=== PATIENT | female | born 1970 | race Caucasian/White ===

== ENCOUNTER 2022-07-03 15:47 | Emergency (ER) | payer OTHER, SELFPAY ==
--- NOTE | 2022-07-03 15:50 | ED.URI ---
HPI - URI/Sore Throat General Chief Complaint: Upper Respiratory Infection Stated Complaint: Throat feels like it is closing Time Seen by Provider: 07/03/22 15:50 Source: patient and RN notes reviewed History of Present Illness HPI Narrative: Patient is a 52-year-old female who presents to urgent care with complaints of swollen throat. Patient states that she did eat [employer] chicken nuggets just prior to her arrival and was able to swallow without difficulty. Patient states that she has dysfunction to strep last week and she felt like her glands were swelling last night. Patient is not taking anything [id number] for her symptoms. Denies any fever, nausea or vomiting. No other acute complaints. No acute distress noted. Patient aware of the plan of care. Some parts of this dictation were generated by voice recognition software and may contain typographical and/or grammatical inaccuracies. Related Data Home Medications Medication Instructions Recorded Confirmed albuterol sulfate 90 mcg/actuation 2 puff inhalation Q4-6H PRN 07/03/22 07/03/22 aerosol inhaler Shortness Of Breath Or Wheezing famotidine 20 mg tablet 20 mg PO QPM 07/03/22 07/03/22 fluticasone propionate 50 1 spray intranasal BID 07/03/22 07/03/22 mcg/actuation nasal spray,suspension insulin glargine 100 unit/mL (3 30 unit subcut QPM 07/03/22 07/03/22 mL) subcutaneous pen (Lantus Solostar U-100 Insulin) insulin lispro 100 unit/mL 5 unit subcut TID 07/03/22 07/03/22 subcutaneous pen ipratropium bromide 17 2 puff inhalation DAILY PRN 07/03/22 07/03/22 mcg/actuation HFA aerosol inhaler Shortness Of Breath Or Wheezing (Atrovent HFA) losartan 50 mg tablet 50 mg PO DAILY 07/03/22 07/03/22 Allergies Allergy/AdvReac Type Severity Reaction Status Date / Time Penicillins Allergy Unknown Unknown Verified 07/03/22 16:12 Sulfa (Sulfonamide Allergy Unknown Unknown Verified 07/03/22 16:12 Antibiotics) tetracycline Allergy Unknown Unknown Verified 07/03/22 16:12 ERYTHROMYCIN LACTOBIONATE Allergy Unknown Unknown Uncoded 07/03/22 16:12 Review of Systems Review of Systems: CONSTITUTIONAL: Denies fever, chills, or sweats. EYES: Denies visual changes, redness, or discharge. ENT: Denies rhinorrhea, congestion, otalgia. Reports of sore throat and swollen glands CARDIOVASCULAR: Denies chest pain, palpitations, or edema. RESPIRATORY: Denies cough or dyspnea. GASTROINTESTINAL: Denies abdominal pain, nausea, vomiting, or diarrhea. GENITOURINARY: Denies dysuria or hematuria. SKIN: Denies rash or itching. MUSCULOSKELETAL: Denies back pain, joint pain, or myalgia. NEUROLOGIC: Denies headache, numbness, or weakness. All other systems reviewed are negative, except as documented in HPI. PMFSH Comments At the time of my signature, I reviewed and agree with the nursing past medical, surgical, social, and family history. There is no relevant family history pertinent to the patient complaint. Exam Narrative: GENERAL: This is a well-nourished, well-developed patient, in no apparent distress. HEAD: normocephalic, atraumatic. EYES: PERRL. Sclera clear/white. Vision is grossly intact. EARS: External ears normal, auditory canals clear and without drainage, TMs normal without perforation. Hearing grossly intact. NOSE: External nose normal with no obvious nasal discharge, nares without redness, no rhinorrhea. THROAT: Mucous membranes moist, posterior pharynx clear. NECK: Neck supple, non-tender mild bilateral submandibular lymphadenopathy, masses or thyromegaly. CARDIOVASCULAR: Regular rate and rhythm without murmurs, gallops, or rubs. RESPIRATORY: Clear to auscultation. Breath sounds equal bilaterally. No wheezes, rales, or rhonchi. SKIN: warm, intact with no suspicious lesions or rash, good texture and turgor. NEURO: awake, alert, and oriented to person, place and time. There were no obvious focal neurologic abnormalities. EXTREMITIES: No clubbing, cyanosis
[2022-07-03 15:52] VITALS: BP 128/71; PULSE 103; RESP 20; TEMP 36.7; O2SAT 96
== END 2022-07-03 16:25 | disposition home or self-care (01) ==
PROVIDERS: Emergency Provider Nurse Practitioner Family; PCP Internal Medicine
DX: J02.9 Acute pharyngitis, unspecified (principal); I10 Essential (primary) hypertension; J45.909 Unspecified asthma, uncomplicated; K21.9 Gastro-esophageal reflux disease without esophagitis; E11.9 Type 2 diabetes mellitus without complications
CPT/HCPCS: 87081; 87880; 99203; G0463

== ENCOUNTER 2023-01-29 17:35 | Emergency (ER) | payer OTHER, SELFPAY ==
[2023-01-29 17:45] VITALS: BP 131/80; PULSE 89; RESP 18; TEMP 36.4; O2SAT 95
--- NOTE | 2023-01-29 18:00 | ED.URI ---
HPI - URI/Sore Throat General Chief Complaint: Upper Respiratory Infection Stated Complaint: chest tight/cough/throat/chills Time Seen by Provider: 01/29/23 18:01 Source: patient Mode of arrival: ambulatory Limitations: no limitations History of Present Illness HPI Narrative: 52-year-old female with history of COPD presented for complaint of cough for 4 days. Endorses at the onset she had headache, nasal congestion and fever which have improved. endorses fatigue and increased shortness of breath from baseline. Patient is tested Negative twice for COVID at home. States she took 4 tablets of leftover Augmentin since yesterday. Related Data Home Medications Medication Instructions Recorded Confirmed albuterol sulfate 90 mcg/actuation 2 puff inhalation Q4-6H PRN 07/03/22 01/29/23 aerosol inhaler Shortness Of Breath Or Wheezing insulin glargine 100 unit/mL (3 30 unit subcut QPM 07/03/22 01/29/23 mL) subcutaneous pen (Lantus Solostar U-100 Insulin) insulin lispro 100 unit/mL 5 unit subcut TID 07/03/22 01/29/23 subcutaneous pen ipratropium bromide 17 2 puff inhalation DAILY PRN 07/03/22 01/29/23 mcg/actuation HFA aerosol inhaler Shortness Of Breath Or Wheezing (Atrovent HFA) losartan 50 mg tablet 50 mg PO DAILY 07/03/22 01/29/23 medroxyprogesterone 150 mg/mL 150 mg IM [id number] 01/29/23 01/29/23 intramuscular suspension Allergies Allergy/AdvReac Type Severity Reaction Status Date / Time Penicillins Allergy Unknown Unknown Verified 01/29/23 17:47 Sulfa (Sulfonamide Allergy Unknown Unknown Verified 01/29/23 17:47 Antibiotics) tetracycline Allergy Unknown Unknown Verified 01/29/23 17:47 ERYTHROMYCIN LACTOBIONATE Allergy Unknown Unknown Uncoded 07/03/22 16:12 Review of Systems Review of Systems: CONSTITUTIONAL: Denies body aches, fever, chills, or sweats. EYES: Denies visual changes, redness, or discharge. ENT: Denies rhinorrhea, congestion, sore throat, or otalgia. CARDIOVASCULAR: Denies chest pain, palpitations, or edema. RESPIRATORY: Reports cough, sob, wheezing. GASTROINTESTINAL: Denies abdominal pain, nausea, vomiting, or diarrhea. SKIN: Denies rash, itching, or wounds. MUSCULOSKELETAL: Denies back pain, joint pain, or myalgia. NEUROLOGIC: Denies headache, numbness, tingling, or weakness. All systems reviewed & are unremarkable except as noted in HPI and below PMFSH Past Medical History Medical History Anemia COPD (chronic obstructive pulmonary disease) Diabetes Social History Social History Smoking status: Current every day smoker Comments At time of signature, I have reviewed and agree with nursing past medical, surgical, social and family history unless otherwise noted. Please see nursing chart for further information. There is no relevant family history pertinent to the presenting complaint Exam Narrative: GENERAL: mildly ill-appearing, in no acute distress. EYES: EOMI. No redness or drainage. Conjunctivae normal. ENT: Mucous membranes pink and moist. No rhinorrhea. TMs normal bilaterally. Throat normal. Uvula midline. CHEST: No respiratory distress. Faint scattered wheezing. HEART: Regular rate and rhythm. No murmur appreciated. ABDOMEN: Soft, nontender, nondistended, normal active bowel sounds. EXTREMITIES: Normal range of motion. No edema. SKIN: Warm, dry, no rash. Capillary refill normal. Normal skin turgor. NEURO: Alert and oriented x3. Gait steady. PSYCH: Normal affect. Course Course Emergency Course: Patient is aware of diagnosis, understands and agrees to treatment plan. Anticipatory guidance given. Patient agrees to follow-up as directed and is aware of reasons to seek care at the emergency department. Portions of this record may have been created with voice recognition software Level of Care: Express Care Visit Vital Signs Patti
== END 2023-01-29 18:18 | disposition home or self-care (01) ==
PROVIDERS: Emergency Provider Nurse Practitioner Family; PCP Internal Medicine
DX: J40 Bronchitis, not specified as acute or chronic (principal); J44.9 Chronic obstructive pulmonary disease, unspecified; E11.9 Type 2 diabetes mellitus without complications; F17.200 Nicotine dependence, unspecified, uncomplicated; Z79.899 Other long term (current) drug therapy; Z79.4 Long term (current) use of insulin
CPT/HCPCS: 99213; G0463

== ENCOUNTER 2024-07-09 17:38 | Emergency (ER) | payer OTHER, SELFPAY ==
--- OUTSIDE RECORDS SUMMARY | 2024-07-09 17:42 | XMS_ITS | Clinical Summary ---
Author Organization [facility] Address [address] [place] [address] Phone Care Team Providers Care Senior Developer Name Role Phone Kendrick Diaz MD Primary Care Provider [phone] Allergies Active Allergy Reactions Criticality Noted Date Comments Erythromycin Unknown 01/06/2015 Penicillins Unknown 01/06/2015 Sulfa Antibiotics Unknown 01/06/2015 Tetracycline Unknown 01/06/2015 Medications HYDROcodone-yana taminophen (NORCO) 5-325 MG Tablet Take 1-2 Tabs by mouth every 4 hours as needed for Pain. 20 Tab 0 01/06/2015 Active predniSONE (DELTASONE) 50 MG Tablet Take 1 Tab by mouth daily. Use as directed. 5 Tab 0 01/06/2015 Active ibuprofen (MOTRIN) 200 MG Tablet Take 3 Tabs by mouth every 6 hours as needed for Fever or Pain. 30 Tab 0 01/06/2015 Active traMADol (ULTRAM) 50 MG Tablet Take 1 Tab by mouth every 6 hours as needed for Pain. 20 Tab 0 03/17/2016 Active naproxen (NAPROSYN) 500 MG TabletIndicatio ns:Pain Take 1 Tablet by mouth 2 times daily as needed for Mild or more severe pain. Indications: Pain 20 Tablet 12/21/2023 Active traMADol (ULTRAM) 50 MG TabletIndicatio ns:Nondisplaced fracture of proximal phalanx of right great toe, initial encounter for closed fracture Take 1 Tablet by mouth every 8 hours as needed for Moderate or more severe pain. 15 Tablet 12/21/2023 Active Social History Tobacco Use Types Packs/Day Years Used Date Smoking Tobacco: Every Day Cigarettes Comments No Sex and Gender Information Value Date Recorded Sex Assigned at Not on file Legal Sex Female 4:04 PM [employer] Gender Identity Not on file Sexual Orientation Not on file Last Filed Vital Signs Vital Sign Reading Time Taken Comments Blood Pressure 157/75 12/21/2023 6:59 PM [employer] Pulse 88 12/21/2023 6:59 PM [employer] Temperature 36.5 C (97.7 F) 12/21/2023 6:58 PM [employer] Respiratory Rate 19 12/21/2023 6:58 PM [employer] Oxygen Saturation 99% 12/21/2023 6:59 PM [employer] Inhaled Oxygen Concentration - - Weight 78 kg (172 lb) 12/21/2023 6:58 PM [employer] Height 167.6 cm (5' 6) 12/21/2023 6:58 PM [employer] Body Mass Index 27.76 12/21/2023 6:58 PM [employer] Plan of Treatment Health Maintenance Due Date Last Done Comments Hepatitis C Virus (HCV) Screening 1970 Mammogram 1968 TdaP Immunization 1968 Hepatitis B Immunization (1 of 3 - 19+ 3-dose series) 02/28/1987 Pneumococcal Immunization (50+ years) (1 of 2 - PCV) 02/28/1987 Pap Smear 02/28/1989 Cervical Cancer Screening (CCS) 02/28/1998 HPV/Cotest 02/28/1998 Colonoscopy 02/28/2013 Colorectal Cancer Screening 02/28/2013 Cologuard 02/28/2018 Immunochemical Fecal Occult Blood 02/28/2018 Zoster Immunization (1 of 2) 02/28/2018 Influenza Immunization (#1) 2023 10/02/2021, 11/26/2021, 11/03/2017, Additional history exists SARS-COV-2 Immunization ( season) 2023 03/10/2021, 06/22/2020, 05/06/2020 Respiratory Syncytial Virus (RSV) Immunization (Adult) (1 - 1-dose 75+ series) 02/28/2043 Meningococcal Immunization (ACWY) Aged Out No longer eligible based on patient's age to complete this topic Rotavirus Immunization Aged Out No lo nger eligible based on patient's age to complete this topic Insurance [place]ICAID [place] Care Teams Senior Developer Relationship Specialty Start Date End Date Kendrick Diaz MD [address] [place] [address] PCP - General Family Medicine 12/21/23
--- OUTSIDE RECORDS SUMMARY | 2024-07-09 17:42 | XMS_ITS | Referral Summary ---
Author Organization [facility] Address [address] [place] [address] Care Team Providers Care Yarn Man Name Role Phone Juvenal Mckeon MD Unavailable [phone] Kendrick Diaz MD Primary Care Provider [phone] Encounters Date Type Department Care Team Description 06/15/2024 Telephone [facility] Diabetes Endocrine Care at [address] [place] [address] Sandra Swann NP 06/09/2024 9:30 AM CDT Office Visit [facility] Cardiology at [address] [place] [address] Oj Hernández MD Hypertension associated with type 2 diabetes mellitus (HCC) (Primary Dx); Mixed diabetic hyperlipidemia associated with type 2 diabetes mellitus (HCC); Coronary artery disease involving [place] coronary artery of [place] heart without angina pectoris; Chronic obstructive pulmonary disease, unspecified COPD type (HCC); Tobacco abuse; Family history of premature coronary artery disease 04/08/2024 Results Follow-Up [facility] Diabetes Endocrine Care at [address] [place] [address] Sandra Swann, [employer] SUPERVISOR Albumin Creatinine Ratio, Urine, Lipid panel, RetinaVue Scanner - OU - Both Eyes from Last 3 Months Allergies Active Allergy Reactions Criticality Noted Date Comments Atorvastatin Itching Low 04/07/2024 Erythromycin Unknown High 06/18/2023 As a child Morphine Nausea & Vomiting Low 12/13/2021 projectile Penicillins Unknown As a child Sulfa (Sulfonamide Antibiotics) Unknown 01/06/2015 As achild Tetracycline Unknown High 06/18/2023 As a child Liraglutide Nausea & Vomiting,Fatigue Low 12/19/2020 Medications famotidine (PEPCID) 40 mg tablet Take 0.5 tablets (20 mg total) by mouth 2 (two) times a day 1 Active albuterol HFA (PROVENTIL HFA,VENTOLIN HFA,PROAIR HFA) 90 mcg/actuation inhaler Inhale 2 puffs as needed 1 Active fluticasone propionate (FLONASE) 50 mcg/actuation nasal spray Administer 1 spray into each nostril as needed 0 Active OneTouch Delica Plus Lancet 33 gauge misc USE TO TEST BLOOD SUGAR TWICE DAILY BEFORE MEALS 1 Active Atrovent HFA 17 mcg/actuation inhaler Inhale 1 puff as needed 1 Active medroxyPROGEST ERone 150 mg/mL injection ADMINISTER 1 ML IN THE MUSCLE EVERY 3 MONTHS 3 Active empagliflozin (JARDIANCE) 10 mg tabletIndicati ons:type 2 diabetes mellitus Take 1 tablet (10 mg total) by mouth daily 90 tablet 4 4 Active LANTUS 100 unit/mL (3 mL) pen for injectionIndic ations:Type 2 diabetes mellitus with diabetic polyneuropathy , with long-term current use of insulin ([facility]) Inject 32 Units under the skin daily e11.9 30 mL 4 4 Active TRUEplus Pen Needle 31 gauge x 5/16 needle USE TO INJECT FOUR TIMES DAILY 400 each 3 4 Active OneTouch Verio test strips stripIndicatio ns:Type 2 diabetes mellitus with diabetic polyneuropathy , with long-term current use of insulin (HCC) USE 1 STRIP TO TEST BLOOD SUGAR THREE TIMES DAILY DIRECTED 300 strip 4 4 Active alcohol swabs (Alcohol Prep Pads) pads, medicatedIndic ations:Type 2 diabetes mellitus with diabetic polyneuropathy , with long-term current use of insulin (HCC) APPLY TOPICALLY TO CLEAN SKIN BEFORE BLOOD SUGAR AND INSULIN INJECTION FIVE TIMES DAILY 500 each 3 4 Active OneTouch Verio Flex meter misc USE TO TEST BLOOD SUGAR 3 TIMES DAILY BEFORE MEALS 1 each 5 Active losartan (COZAAR) 50 mg tabletIndicati ons:Type 2 diabetes mellitus with hyperglycemia, with long-term current use of insulin (HCC) Take 0.5 tablets (25 mg total) by mouth daily 5 Active rosuvastatin (CRESTOR) 20 mg tabletIndicati ons:Type 2 diabetes mellitus with hyperglycemia, with long-term current use of insulin (HCC) rosuvastatin 20 mg tablet 4 Active aspirin 81 mg chewable tabletIndicati ons:prevention of thrombosis Take 1 tablet (81 mg total) by mouth daily 90 tablet 3 5 026 Active clopidogreL (PLAVIX) 75 mg tablet Take 1 tablet (75 mg total) by mouth daily 90 tablet 3 5 Active insulin lispro (HumaLOG, ADMELOG) 100 unit/mL pen for injectionIndic ations:type 2 diabetes mellitus Inject 12 Units under the skin 3 (three) times a day before meals E11.65 45 mL 4 5 Active insulin lispro (HumaLOG, ADMELOG) 100 unit/mL pen for injection ADMINISTER 12 UNITS UNDER THE SKIN TWICE DAILY 30 mL 2 5 025 Discontin ued(Reord er) Active Problems Problem Noted Date Diagnosed Date Coronary artery disease invo lving [place] coronary artery of [place] heart without angina pectoris 06/09/2024 Family history of premature coronary artery dise ase 06/09/2024 STEMI (ST elevation myocardial infarction) 06/15 COPD (chronic obstructive pulmonary disease) 08/2023 GERD (gastroesophageal reflux disease) 4 Hypertension associated with type 2 diabetes emely litus 06/16/2023 Assessment & Plan (07/02/2023 2:42 PM CDT): This is a chronic condition which is not at goal. Goal is less than 140/90 Personally reviewed labs. Previously on losartan but was discontinued Encouraged to monitor weight and B/P at home. Explained correct way to take blood pressure. - After 5 minutes of sitting calmly with arm supported. Encouraged to void caffeine and excessive alcohol consumption as this will elevate B/P Encouraged to take medications as prescribed. Will message Dr. PARRISH and notify him of hypertension Tobacco abuse 06/16/2023 Anemia, unspecified 11/28/2021 Type 2 diabetes mellitus wit h hyperglycemia, with long-term current use of insulin 11/22/2020 Assessment & Plan (07/02/2023 2:40 PM CDT): This is a chronic condition which is Not at goal . Goal is less than 7%. Personally reviewed most recent A1c - Lab Results Component Value Date HGBA1C 7.4 (H) 06/16/2023 Personally reviewed POC blood sugar- not at goal of 80-180 Lab Results Component Value Date POCGLU 235 08/07/2022 Medication- continue Lantus 32 units daily to avoid hypoglycemia and lispro 12 units prior to 2 meals/day. Start jardiance 10mg po daily Monitor blood sugar 3 times a day. Encouraged annual eye exam. Monofilament foot exam completed. Protective senses intact Treated with Gabapentin/Lyrica Personally reviewed CMP eGFR- 76 Kidney function-abnormal Urine microalbumin/creatinine ratio - not at goal. Goal is <30 not treated with ZOE/ARB B/P today- not at goal . Goal is <140/90. Message sent to Dr. PARRISH packager or packer and weigher regarding hypertension Personally reviewed lipid panel. Not at goal. Goal is less than 70. Continue atorvastatin Assessment & Plan (08/07/2022 4:57 PM CDT): This is a chronic condition which is inadequately controlled, worsening -not at goal of less than 7%. Alteration in A1c is most likely due to iron infusions as she had low hemoglobin levels and now have returned to normal ranges Latest Reference Range & Units 05/13/22 13:55 07/01/22 14:35 Hgb 11.9 - 15.5 g/dL 8.1 (L) 12.9 Hct 35.6 - 45.5 % 25.2 (L) 39.7 (L): Data is abnormally low Personally reviewed most recent A1c - Lab Results Component Value Date HGBA1C 9.0 08/07/2022 Personally reviewed POC blood sugar- not at goal 80-180 Lab Results Component Value Date POCGLU 235 08/07/2022 Medication- increased Lantus 32 units daily to avoid hypoglycemia and lispro 12 units prior to 2 meals/day. Add bydureon bcise 2mg weekly. Monitor blood sugar 3x times a day. Encouraged annual eye exam. Monofilament foot exam completed. protective senses intact loss of protective senses. Treated with Gabapentin/Lyrica Personally reviewed CMP eGFR- 76 Kidney function- normal Urine microalbumin/creatinine ratio - not at goal <30 treated with losartan B/P today- at goal of <140/90. continue losartan Personally reviewed lipid panel. Not at Goal of less than 70. Not on statin therapy. Assessment & Plan (05/07/2022 4:51 PM CDT): This is a chronic condition which is worsening not at goal of less than 7%. Discussed that sometimes anemia can cause in accuracies in the A1c level. This is damon important to monitor blood sugars closely while she prepares for her upcoming hysterectomy. Personally reviewed most recent A1c - Lab Results Component Value Date HGBA1C 7.5 05/07/2022 Personally reviewed POC blood sugar- not at goal 80-180 Lab Results Component Value Date POCGLU 286 05/07/2022 Medication- increase Lantus 30 units daily. Took discussed the importance of maintaining blood sugars around 150 if she will be having a hysterectomy to promote good wound healing. Monitor blood sugar 2times a day. Encouraged annual eye exam. Monofilament foot exam completed, protective senses intact. Reports burning and tingling in feet Urine microalbumin/creatinine ratio - 30-300mg/dl currently losartan 50 mg p.o. daily , not at goal <30 B/P today-at goal of less than 140/90. Continue losartan. Personally reviewed LDL-113, Not at Goal of less than 70. She stopped taking the pravastatin. Explained the need for pravastatin to help with reduction of cardiovascular risk. She states she would start taking it after all of her bleeding problems and hysterectomy have been resolved Assessment & Plan (01/07/2022 4:07 PM [employer]): This is a chronic condition which is improving and at goal. Personally reviewed A1c today-6%, at goal less than 7% Personally reviewed blood sugar 244, not at goal 80-180 Medication- decrease Lantus 25 units daily. Monitor blood sugar 2times a day. Encouraged annual eye exam. Monofilament foot exam completed, protective senses intact. Reports burning and tingling in feet Urine microalbumin/creatinine ratio - 30-300mg/dl currently losartan 50 mg p.o. daily , not at goal <30 B/P today-not at goal of less than 140/90 after 5 minutes of rest. States she forgot her blood pressure medication this morning currently on losartan. Discussed setting an alarm to help remind her to take her medication. Personally reviewed LDL 99, currently on pravastatin 10 mg p.o. daily. Not at Goal of less than 70 No history of macrovascular disease - CVA, CT. Assessment & Plan (06/18/2021 4:13 PM CDT): This is a chronic condition which is improving but not at goal. Personally reviewed A1c today-7.6%, not at goal less than 7% Personally reviewed blood sugar 330, not at goal 80-180 Medication- increase Lantus 22 units daily and increase by 1 units every 4 days until fasting blood sugar is between 100-130 Monitor blood sugar 2times a day. Encouraged annual eye exam. Monofilament foot exam completed, protective senses intact. Reports burning and tingling in feet Urine microalbumin/creatinine ratio - 30-300mg/dl currently losartan 50 mg p.o. daily , not at goal <30 Ordered labs B/P today-160/80 decreased to 146/60 after 5 minutes of rest. currently on losartan. At Goal blood pressure is <140/90 and as close to 120/80 as possible. Personally reviewed LDL 99, currently on pravastatin 10 mg p.o. daily. Not at Goal of less than 70 No history of macrovascular disease - CVA, CT. Assessment & Plan (12/11/2020 3:58 PM CDT): This is a chronic condition which is uncontrolled with hyperglycemia, not at goal. Personally reviewed A1c today-10, not at goal less than 7% Personally reviewed blood sugar 308, not at goal 80-180 Medication- Lantus 20 units daily. Add victoza 0.6mg daily for 10 days and then increase to 1.2mg daily. Denies history of pancreatitis. Does not like to take pills. Monitor blood sugar 3 times a day. Encouraged annual eye exam. Monofilament foot exam completed, protective senses intact. Reports burning and tingling in feet Urine microalbumin/creatinine ratio - 30-300mg/dl currently losartan 50 mg p.o. daily , not at goal <30 No labs were available for review Ordered labs B/P today-146/60 , currently on losartan. At Goal blood pressure is <140/90 and as close to 120/80 as possible. Personally reviewed LDL 99, currently on pravastatin 10 mg p.o. daily. Not at Goal of less than 70 No history of macrovascular disease - CVA, CT. Assessment & Plan (11/22/2020 4:27 PM CDT): This is a chronic condition which is uncontrolled with hyperglycemia, not at goal. Personally reviewed A1c today-10, not at goal less than 7% Personally reviewed blood sugar 273, not at goal 80-180 Medication- Increase Lantus 14 units daily and increase by 2 units every 4 days. Stop when fasting blood sugar is 130 or at 20 units. Monitor blood sugar 3 times a day. Encouraged annual eye exam. Monofilament foot exam completed, protective senses intact. Reports burning and tingling in feet Urine microalbumin/creatinine ratio - 30-300mg/dl currently losartan 50 mg p.o. daily , not at goal <30 No labs were available for review Ordered labs B/P today-132/66 , currently on losartan. At Goal blood pressure is <140/90 and as close to 120/80 as possible. Personally reviewed LDL 99, currently on pravastatin 10 mg p.o. daily. Not at Goal of less than 70 No history of macrovascular disease - CVA, CT. Mixed diabetic hyperlipidemi a associated with type 2 diabetes mellitus 11/22/2020 Assessment & Plan (07/02/2023 2:41 PM CDT): This is a chronic condition which is not at goal . Goal is LDL less than 70 Continue atorvastatin Encouraged to eat healthy, include fresh fruits and vegetables daily and avoid eating fried foods more than once per week. Encouraged to take medications as prescribed. Assessment & Plan (08/07/2022 4:58 PM CDT): This is a chronic condition which is not at goal of LDL less than 70 not on statin therapy. Was on pravastatin but not taking it at this time Encouraged to eat healthy, include fresh fruits and vegetables daily and avoid eating fried foods more than once per week. Encouraged to take medications as prescribed. Assessment & Plan (05/07/2022 3:51 PM CDT): This is a chronic condition which is not at goal of less than 70. Personally reviewed point of care lipid panel. Continue pravastatin 10 mg p.o. daily. Avoid caffeine, caffeine will raise blood pressure and excessive alcohol consumption. Monitor your weight and B/P. Encouraged to take medications as prescribed. Assessment & Plan (01/07/2022 4:07 PM [employer]): This is a chronic condition which is not at goal Of <140/90 Personally reviewed point of care lipid panel. LDL 99, currently on pravastatin 10 mg p.o. daily. Not at Goal of less than 70 Avoid caffeine, caffeine will raise blood pressure and excessive alcohol consumption. Monitor your weight and B/P. Encouraged to take medications as prescribed. Assessment & Plan (06/18/2021 3:51 PM CDT): This is a chronic condition which is not at goal Goal is <140/90 Personally reviewed point of care lipid panel. LDL 99, currently on pravastatin 10 mg p.o. daily. Not at Goal of less than 70 Avoid caffeine, caffeine will raise blood pressure and excessive alcohol consumption. Monitor your weight and B/P. Encouraged to take medications as prescribed. Assessment & Plan (12/11/2020 3:24 PM CDT): This is a chronic condition which is not at goal Goal is <140/90 Personally reviewed point of care lipid panel. LDL 99, currently on pravastatin 10 mg p.o. daily. Not at Goal of less than 70 Avoid caffeine, caffeine will raise blood pressure and excessive alcohol consumption. Monitor your weight and B/P. Encouraged to take medications as prescribed. Assessment & Plan (11/22/2020 4:29 PM CDT): This is a chronic condition which is not at goal Goal is <140/90 Personally reviewed point of care lipid panel. LDL 99, currently on pravastatin 10 mg p.o. daily. Not at Goal of less than 70 Avoid caffeine, caffeine will raise blood pressure and excessive alcohol consumption. Monitor your weight and B/P. Encouraged to take medications as prescribed. Resolved Problems Problem Noted Date Diagnosed Date Resolved Date Sprain of ribs, initial encounter 03/16/2017 11/22/2020 Intercostal muscle strain 03/16/2017 Immunizations Immunization Administration Dates Next Due Influenza, Quadrivalent, Split, Intramuscular ,12/22/2014 Influenza, Quadrivalent, Spl it, Preservative Free, Intramuscular 11/03/2017 Influenza, Unspecified 11/29/2021 Social History Tobacco Use Types Packs/Day Years Used Date Smoking Tobacco: Every Day Cigarettes 2 40 Smokeless Tobacco: Never Tobacco Cessation:Ready to Q uit: Not Asked; Counseling Given: Not Answered Comments:Started smoking at age 7, was up to 3ppd by high school [facility] Utilities Answer Date Recorded In the past 12 months has [employer], gas, oil, or water [employer] threatened to shut off services in your home? No 06/16/2023 Social Connection and Isolat ion Panel [NHANES] Answer Date Recorded In a typical week, how many times do you talk on the phone with family, friends, or neighbors? More than three times a week 06/16/2023 How often do you get togethe r with friends or relatives? More than three times a week 06/16/2023 How often do you attend chur ch or scientologist services? Never 06/16/2023 Do you belong to any clubs o r organizations such as confucianist groups, unions, fraternal or athletic groups, or school groups? No 06/16/2023 How often do you attend meet ings of the clubs or organizations you belong to? Never 06/16/2023 Are you , , di vorced, , never , or living with a partner? 06/16/2023 Overall Financial Resource Strain (CARDIA) Answe r Date Recorded How hard is it for you to pa y for the very basics like food, housing, medical care, and heating? Not hard at all 06/16/2023 Hunger Vital Sign Answer Date Recorded Within the past 12 months, y ou worried that your food would run out before you got the money to buy more. Never true 06/16/19 24 Within the past 12 months, t he food you bought just didn't last and you didn't have money to get more. Never true 06/16/2023 PRAPARE - Transportation Answer Date Re corded In the past 12 months, has l ack of transportation kept you from medical appointments or from getting medications? No 08/2023 In the past 12 months, has l ack of transportation kept you from meetings, work, or from getting things needed for daily living? No 06/16/2023 Housing Stability Vital Sign Answer Raphael e Recorded In the last 12 months, was t here a time when you were not able to pay the mortgage or rent on time? No 06/16/2023 In the last 12 months, how many places have you lived? 1 06/16/2023 In the last 12 months, was t here a time when you did not have a steady place to sleep or slept in a care home (including now)? No 06/16/2023 Personal Safety Answer Date Recorded Have you ever been in or are you currently in a harmful physical or emotional relationship or is someone making you feel afraid or unsafe? Denies 06/19/2023 Comments No Sex and Gender Information Value Date Recorded Sex Assigned at Not on file Legal Sex Female 3:18 AM [employer] Gender Identity Female 12/18/2021 8:58 PM [employer] Sexual Orientation Straight 12/18/2021 8: 58 PM [employer] Last Filed Vital Signs Vital Sign Reading Time Taken Comments Blood Pressure 156/92 06/09/2024 9:40 AM CDT Pulse 88 06/09/2024 9:40 AM CDT Temperature 36.3 C (97.3 F) 12/30/2023 1:48 PM [employer] Respiratory Rate 20 12/30/2023 1:48 PM [employer] Oxygen Saturation 98% 06/09/2024 9:40 AM CDT Inhaled Oxygen Concentration - - Weight 82.6 kg (182 lb) 06/09/2024 9:40 AM CDT Height 167.6 cm (5' 6) 06/09/2024 9:40 AM CDT Body Mass Index 29.38 06/09/2024 9:40 AM CDT Plan of Treatment Not on file Medical Devices Implanted Type Area Gun Barrel Finisher Device Identifier Shelf Expiration Date Model / Serial / Lot [employer] - Night[employer]ove Synergy Xd Monorail 3mm 16mm 144cm Delivery System 1 Access Port [id number] - [id number] Implanted:Qty: 1 on 06/16/2023 by Candelario Angelo MD at [facility] [employer] 12/30/2024 [id number] / / [id number] Cord Mynxgrip 6-7fr Balloon Catheter Integrate Sealant Lock Latex Free [id number] - [id number] Implanted:Qty: 1 on 06/16/2023 by Candelario Angelo MD at [facility] 05/09/2025 [id number] / / [id number] [employer] [facility] Vas Surgery 3.0 X 15mm Dunlevy Estelline Rx Coronary Stent [id number] - [id number] Implanted:Qty: 1 on 06/19/2023 by Candelario Angelo MD at [facility] [employer] [facility] Vas Surgery 02/24/2026 [id number] / / [id number] Procedures Procedure Name Priority Date/Time Associated Diagnosis Comments ECG 12-LEAD Routine 06/09/2024 3:24 PM CDT Hypertension associated with type 2 diabetes mellitus (HCC) LIPID PANEL Routine 04/07/2024 2:43 PM [employer] Type 2 diabetes mellitus with hyperglycemia, with long-term current use of insulin (HCC) ALBUMIN CREATININE RATIO, URINE Routine 04/07/2024 2:43 PM [employer] Type 2 diabetes mellitus with hyperglycemia, with long-term current use of insulin (HCC) POCT HEMOGLOBIN A1C Routine 04/07/2024 1 :51 PM [employer] Type 2 diabetes mellitus with hyperglycemia, with long-term current use of insulin (HCC) RETINAVUE SCANNER - OU - BOTH EYES Routine 04/07/2024 Type 2 diabetes mellitus with hyperglycemia, with long-term current use of insulin (HCC) EGFR Routine 12/30/2023 1:40 PM [employer] Iron deficiency anemia due to chronic blood loss from Last 3 Months or Most Recently Relevant to Health Maintenance Results * ECG 12 lead (06/09/2024 3:24 PM CDT) us Oj Hernández MD ECG ORDERABLES Final Res ult * (ABNORMAL) Albumin Creatinine Ratio, Urine (04/07/2024 2:43 PM [employer]) Albumin Ur 96.9 mg/L Comment: Interpretive Data No reference range established. Current interpretive data was last revised 2018. Creatinine Ur 78.1 mg/dL [facility] Comment: Interpretive Data No reference range established. Current interpretive data was last revised 2018. Albumin Creatinine Ratio, Ur 124(H) 1 - 29 mg/g [facility] Urine 04/07/2024 2:43 PM [employer] 04/07/2024 9:18 PM [employer] us Sandra Swann NP LAB URINE ORDERABLES Final Resu lt [facility] [id number] Do Department [place] [address] * (ABNORMAL) Lipid panel (04/07/2024 2:43 PM [employer]) Cholesterol 131 30 - 199 mg/dL Comment: Interpretive Data Ages < or = 19 years Acceptable: <170 mg/dL Borderline high: 170-199 mg/dL High: >or= 200 mg/dL Ages > or = 20 years Desirable: <200 mg/dL Borderline high: 200-239 mg/dL High: >or= 240 mg/dL Literature References: 1. Expert Panel on Integrated Guidelines for Cardiovascular Health and Risk Reduction in Children and Adolescents. Pediatrics 2011;128:S213 2. NCEP Expert Panel. Circulation 2004;110:227 Current Interpretive Data was last revised on 2017. Triglycerides 131 <=149 mg/dL [facility] Comment: Interpretive Data Ages < or = 9 years Acceptable: <75 mg/dL Borderline high: 75-99 mg/dL High: >or= 100 mg/dL Ages 10 to 20 years Acceptable: <90 mg/dL Borderline high: 90-129 mg/dL High: >or= 130 mg/dL Ages > or = 20 years Desirable: <150 mg/dL Borderline high: 150-199 mg/dL High: 200-499 mg/dL Very high: >or= 499 mg/dL Literature References: 1. Expert Panel on Integrated Guidelines for Cardiovascular Health and Risk Reduction in Children and Adolescents. Pediatrics 2011;128:S213 2. NCEP Expert Panel. Circulation 2004;110:227 Current Interpretive Data was last revised on 2017. HDL 36(L) >=40 mg/dL [facility] Comment: Interpretive Data Ages < or = 19 years Acceptable: >45 mg/dL Borderline low: 40-45 mg/dL Low: <40 mg/dL Ages > or = 20 years Desirable: >or= 60 mg/dL Low: <40 mg/dL Literature References: 1. Expert Panel on Integrated Guidelines for Cardiovascular Health and Risk Reduction in Children and Adolescents. Pediatrics 2011;128:S213 2. NCEP Expert Panel. Circulation 2004;110:227 Current Interpretive Data was last revised on 2017. LDL, calculated 72 <=129 mg/dL [facility] Comment: Interpretive Data Ages < or = 19 years Acceptable: <110 mg/dL Borderline high: 110-129 mg/dL High: >or= 130 mg/dL Ages > or = 20 years Optimal: <100 mg/dL Near optimal: 100-129 mg/dL Borderline high: 130-159 mg/dL High: >160 mg/dL Calculated using the Frank LDL-C estimating equation. This equation was implemented on 2023. Prior to this date LDL-C was estimated using the Friedewald equation. Literature References: 1. Expert Panel on Integrated Guidelines for Cardiovascular Health and Risk Reduction in Children and Adolescents. Pediatrics 2011;128:S213 2. NCEP Expert Panel. Circulation 2004;110:227 3. Frank Bob et al. YURY Cardiol. 2020 June 09;5(5):540-548. doi: [email or web address] Current Interpretive Data was last revised on 2023. Non-HDL Cholesterol 95 mg/dL STEPHANIE ARTHUR Comment: Interpretive Data Ages < or = 19 years Acceptable: <120 mg/dL Borderline high: 120-144 mg/dL High: >145 mg/dL Ages > or = 20 years When triglycerides are >200 mg/dL, Non-HDL cholesterol is a secondary target of therapy with treatment goals that are 30 mg/dL greater than the LDL cholesterol target. Literature References: 1. Expert Panel on Integrated Guidelines for Cardiovascular Health and Risk Reduction in Children and Adolescents. Pediatrics 2011;128:S213 2. NCEP Expert Panel. Circulation 2004;110:227 Current Interpretive Data was last revised on 2017. Chol/HDL ratio 4 STEPHANIE ARTHUR Blood 04/07/2024 2:43 PM [employer] 04/07/2024 9:18 PM [employer] Narrative STEPHANIE - 04/07/2024 10:21 PM [employer] These lab test should be done fasting. This means do not eat or drink for at least 12 hours prior to getting your blood drawn. us Sandra Swann NP LAB BLOOD ORDERABLES Final Resu lt STEPHANIE [id number] [address] Department [place] [address] * POCT hemoglobin A1c (04/07/2024 1:51 PM [employer]) Hemoglobin A1C, POC 7.5 4.0 - 5.6 % Blood 04/07/2024 1:51 PM [employer] us Sandra Swann NP POINT OF CARE TEST ORDERABLES F inal Result * RetinaVue Scanner - OU - Both Eyes (04/07/2024) Anatomical Region Laterality Modality Head Fundus Photograp hy 04/07/2024 us Sandra K. Shree STENO POOL SUPERVISOR OPHTH PHOTOGRAPHY Final Result * eGFR (12/30/2023 1:40 PM [employer]) eGFR 62 >=60 mL/min/1. 73 m2 Comment: Interpretive Data Reference Interval Normal >/= 90 mL/min/1.73m2 Mildly decreased* 60 - 89 mL/min/1.73m2 Mildly to moderately decreased 45 - 59 mL/min/1.73m2 Moderately to severely decreased 30 - 44 mL/min/1.73m2 Severely decreased 15 - 29 mL/min/1.73m2 Kidney Failure < 15 mL/min/1.73m2 *Relative to young adult level Estimated glomerular filtration rate is determined by the 2020 CKD-EPI equation recommended by the National Kidney Foundation (A Unifying Approach to GFR Estimation: Recommendations of the NKF-ASK Task Force on Reassessing the Inclusion of Race in Diagnosing Kidney Disease, JASN 2020). The CKD-EPI equation should not be used for patients with unstable renal function and has not been validated in children and those over 70. Current interpretive data was last reviewed 2020. Testing performed by: [facility], [place], [address] Blood 12/30/2023 1:40 PM [employer] 12/30/2023 2:38 PM [employer] us Sepideh Dobbs NP LAB BLOOD ORDERABLES Final Result [facility] ([address] Department [place] [address] from Last 3 Months or Most Recently Relevant to Health Maintenance Insurance [facility] Advance Directives For more information, please contact: [phone] * Full Code (Latest Code Status on File) Date Activated Date Inactivated Comments 06/16/2023 5:19 AM 06/17/2023 9:36 PM Care Teams Yarn Man Relationship Specialty Start Date End Date Kendrick Diaz MD [address] [place] [address] [address] [place] [address] PCP - General Family Medicine 06/16/23 Juvenal Mckeon MD Medical Oncologist/Specialized Developer Hematology and Oncology 07/01/22
--- OUTSIDE RECORDS SUMMARY | 2024-07-09 17:42 | XMS_ITS | Data Portability ---
Author Organization [facility] Jose Angel [facility] Address [address] [place] [address] Care Team Providers Care Health Promoter Name Role Phone ZEN HORNER Diabetes Education [phone] TRACEE MYERS Gang Head Saw Operator JOSE SWAN Blogs Manager KENDRICK HAWLEY Primary Care Provider Assessment Encounter Date Assessment Date Assessment LastModified by Organization Details LastModified Time 06/15/2024 06/15/2024 Treatment will proceed as below. [email or web address] Not available 06/17/2024 07:23:36 Plan of Treatment Reminders Order Date Submit Date Provider Last Modified By Organization Details Last Modified Time Details Appointments NICHOL SILVA T 30 2024 11:00A M Oscar Garcia MD Not available Not available Not available Lab ferrit in, serum or plasma 2024 025 MELVIN [facility] (Centralized Electronic Ordering - All Locations), Patient Can Go To The Location Of Their Choice, 05/25/2024 11:27:19 iron + total iron-b inding capaci ty (TIBC) , serum 2024 025 MELVIN [facility] (Centralized Electronic Ordering - All Locations), Patient Can Go To The Location Of Their Choice, 05/25/2024 11:27:15 HbA1c (hemog lobin A1c), blood 2024 025 MELVIN [facility] (Centralized Electronic Ordering - All Locations), Patient Can Go To The Location Of Their Choice, 05/25/2024 11:27:16 cobala min and folate panel, serum 2024 025 MELVIN [facility] (Centralized Electronic Ordering - All Locations), Patient Can Go To The Location Of Their Choice, 05/25/2024 11:27:14 CBC w/ auto diff 2024 MELVIN [facility] (Centralized Electronic Ordering - All Locations), Patient Can Go To The Location Of Their Choice, 05/25/2024 11:27:20 lh + FSH, serum 2024 025 MELVIN [facility] (Centralized Electronic Ordering - All Locations), Patient Can Go To The Location Of Their Choice, 05/25/2024 11:27:21 estrad iol, serum 2024 025 MELVIN [facility] (Centralized Electronic Ordering - All Locations), Patient Can Go To The Location Of Their Choice, 05/25/2024 11:27:17 Referral gyneco logic surger y referr al 2024 [email or web address] Bradley MD, [address] [place], [address], 05/24/2024 17:32:34 Procedures None record ed. Surgeries None record ed. Imaging US, pelvis , transa bdomin al + transv aginal 2024 [facility], [address] [facility] , [place], [address], 07/09/2024 04:07:47 Medication Orders Bactri m DS 800 mg-160 mg tablet 2024 025 [facility][id number], [address], [place], [place], [id number], 06/15/2024 10:53:14 medrox yproge steron e 150 mg/mL intram uscula r suspen delilah 2024 [facility]25 [facility], [address], [place], [place], [id number], 05/24/2024 09:40:02 medrox yproge steron e 150 mg/mL intram uscula r suspen delilah 2024 025 [email or web address] [facility] #13626, [address], [place], [place], [id number], 02/23/2024 09:19:03 medrox yproge steron e 150 mg/mL intram uscula r suspen delilah 2023 024 [email or web address] Not available 12/08/2023 09:20:07 Patient TargetsNo targets recorded. Patient Instructions Encounter Date Encounter Id Patient Instructions Last Modified By Organization Details Last Modified Time 12/04/2023 [id number] Quitting Tobacco: Care Instructions [email or web address] Not available 12/08/2023 10:36:21 05/24/2024 [id number] heavy menstrual periods: care instructions [email or web address] Not available 05/24/2024 16:29:54 06/15/2024 [id number] chronic obstructive pulmonary disease (COPD): care instructions [email or web address] Not available 06/15/2024 10:56:25 learning about copd and how to prevent lung infections [email or web address] Not available 06/15/2024 10:56:25 Reason for Referral Gynecologic Surgery Referral for Menorrhagia Referring Physician: Tracee Myers, Office Services Associate, Encounter Date: 05/24/2024 Results Created Date Observation Date Name Description Value Unit Range Abnormal Flag Note LastModifiedBy Organization Detail LastModifiedTime 04/07/1904/07/2024 Hemog lobin A1c/H emogl obin. total in Blood hemoglobin A1C, POC 7.5 % low: 4%high : 5.6% Hemog lobin A1C, POC 7.5 4.0 - 5.6 % Not Available Not Available 04/12/2024 14:30:32 05/25/19 25 05/25/2024 VITAM IN B12 AND FOLAT E vitamin B12 470 pg/mL 232-12 45 Not Available [facility] ([facility]) [address] [facility], [place], [address], 05/25/2024 11:27:14 05/25/19 25 05/25/2024 VITAM IN B12 AND FOLAT E folate (folic acid), serum 10.0 NG/mL >3.0 A serum folat e ana ntrat ion of less than 3.1 ng/mL is consi dered to repre sent clini loyd defic iency . Not Available [facility] ([facility]) [address] [facility], [place], [address], 05/25/2024 11:27:14 05/25/19 25 05/25/2024 IRON AND TIBC iron bind.cap.(TI BC) 385 ug/dL 250-45 0 Not Available [facility] ([facility]) [address] [facility], [place], [address], 05/25/2024 11:27:15 05/25/19 25 05/25/2024 IRON AND TIBC UIBC 294 ug/dL 131-42 5 Not Available [facility] ([facility]) [address] [facility], [place], [address], 05/25/2024 11:27:15 05/25/19 25 05/25/2024 IRON AND TIBC iron 91 ug/dL 27-159 Not Available [facility] ([facility]) [address] [place], [address], 05/25/2024 11:27:15 05/25/19 25 05/25/2024 IRON AND TIBC iron saturation 24 % 15-55 Not Available [facility] ([facility]) [address] [facility], [place], [address], 05/25/2024 11:27:15 05/25/19 25 05/25/2024 HEMOG LOBIN A1C hemoglobin A1C 8.0 % 4.8-5. 6 above high normal Predi abete s: 5.7 - 6.4 Diabe coy: >6.4 Glyce deja contr ol for adult s with diabe coy: <7.0 Not Available [facility] ([facility]) [address] [place], [address], 05/25/2024 11:27:16 05/25/19 25 05/25/2024 ESTRA DIOL estradiol 10.7 pg/mL Adult Femal e Range Folli cular phase 12.5 - 166.0 Ovula tion phase 85.8 - 498.0 Lutea l phase 43.8 - 211.0 Postm enopa usal <6.0 - 54.7 Pregn wilfrid 1st trime ster 215.0 - >4300 .0 Leonard ECLIA metho dolog y Not Available [facility] ([facility]) [address] [place], [address], 05/25/2024 11:27:17 05/25/19 25 05/25/2024 ENOCH TIN ferritin 34 NG/mL 15-150 Not Available [facility] ([facility]) [address] [place], [address], 05/25/2024 11:27:18 05/25/19 25 05/25/2024 CBC WITH DIFFE RENTI AL/PL ATELE T WBC 8.9 x10e3 /uL 3.4-10 .8 Not Available [facility] ([facility]) [address] [place], [address], 05/25/2024 11:27:20 05/25/19 25 05/25/2024 CBC WITH DIFFE RENTI AL/PL ATELE T RBC 4.41 x10e6 /uL 3.77-5 .28 Not Available [facility] ([facility]) [address] [place], [address], 05/25/2024 11:27:20 05/25/19 25 05/25/2024 CBC WITH DIFFE RENTI AL/PL ATELE T hemoglobin 13.4 g/dL 11.1-1 5.9 Not Available [facility] ([facility]) [address] [place], [address], 05/25/2024 11:27:20 05/25/19 25 05/25/2024 CBC WITH DIFFE RENTI AL/PL ATELE T hematocrit 39.7 % 34.0-4 6.6 Not Available [facility] ([facility]) [address] [facility], [place], [address], 05/25/2024 11:27:20 05/25/19 25 05/25/2024 CBC WITH DIFFE RENTI AL/PL ATELE T MCV 90 fL 79-97 Not Available [facility] ([facility]) [address] [place], [address], 05/25/2024 11:27:20 05/25/19 25 05/25/2024 CBC WITH DIFFE RENTI AL/PL ATELE T MCH 30.4 pg 26.6-3 3.0 Not Available [facility] ([facility]) [address] [facility], [place], [address], 05/25/2024 11:27:20 05/25/19 25 05/25/2024 CBC WITH DIFFE RENTI AL/PL ATELE T MCHC 33.8 g/dL 31.5-3 5.7 Not Available [facility] ([facility]) [address] [place], [address], 05/25/2024 11:27:20 05/25/19 25 05/25/2024 CBC WITH DIFFE RENTI AL/PL ATELE T RDW 13.4 % 11.7-1 5.4 Not Available [facility] ([facility]) [address] [place], [address], 05/25/2024 11:27:20 05/25/19 25 05/25/2024 CBC WITH DIFFE RENTI AL/PL ATELE T platelets 270 x10e3 /uL 150-45 0 Not Available [facility] ([facility]) [address] [place], [address], 05/25/2024 11:27:20 05/25/19 25 05/25/2024 CBC WITH DIFFE RENTI AL/PL ATELE T neutrophils 59 % notest ab. Not Available [facility] ([facility]) [address] [facility], [place], [address], 05/25/2024 11:27:20 05/25/19 25 05/25/2024 CBC WITH DIFFE RENTI AL/PL ATELE T lymphs 26 % notest ab. Not Available [facility] ([facility]) [address] [facility], [place], [address], 05/25/2024 11:27:20 05/25/19 25 05/25/2024 CBC WITH DIFFE RENTI AL/PL ATELE T monocytes 7 % notest ab. Not Available [facility] ([facility]) [address] [facility], [place], [address], 05/25/2024 11:27:20 05/25/19 25 05/25/2024 CBC WITH DIFFE RENTI AL/PL ATELE T eos 7 % notest ab. Not Available [facility] ([facility]) [address] [facility], [place], [address], 05/25/2024 11:27:20 05/25/19 25 05/25/2024 CBC WITH DIFFE RENTI AL/PL ATELE T basos 1 % notest ab. Not Available [facility] ([facility]) [address] [facility], [place], [address], 05/25/2024 11:27:20 05/25/19 25 05/25/2024 CBC WITH DIFFE RENTI AL/PL ATELE T neutrophils (absolute) 5.3 x10e3 /uL 1.4-7. 0 Not Available [facility] ([facility]) [address] [facility], [place], [address], 05/25/2024 11:27:20 05/25/19 25 05/25/2024 CBC WITH DIFFE RENTI AL/PL ATELE T lymphs (absolute) 2.3 x10e3 /uL 0.7-3. 1 Not Available [facility] ([facility]) [address] [facility], [place], [address], 05/25/2024 11:27:20 05/25/19 25 05/25/2024 CBC WITH DIFFE RENTI AL/PL ATELE T monocytes(ab solute) 0.6 x10e3 /uL 0.1-0. 9 Not Available [facility] ([facility]) [address] [facility], [place], [address], 05/25/2024 11:27:20 05/25/19 25 05/25/2024 CBC WITH DIFFE RENTI AL/PL ATELE T eos (absolute) 0.6 x10e3 /uL 0.0-0. 4 above high normal Not Available [facility] ([facility]) [address] [facility], [place], [address], 05/25/2024 11:27:20 05/25/19 25 05/25/2024 CBC WITH DIFFE RENTI AL/PL ATELE T baso (absolute) 0.1 x10e3 /uL 0.0-0. 2 Not Available [facility] ([facility]) [address] [place], [address], 05/25/2024 11:27:20 05/25/19 25 05/25/2024 CBC WITH DIFFE RENTI AL/PL ATELE T immature granulocytes 0 % notest ab. Not Available [facility] ([facility]) [address] [place], [address], 05/25/2024 11:27:20 05/25/19 25 05/25/2024 CBC WITH DIFFE RENTI AL/PL ATELE T immature grans (abs) 0.0 x10e3 /uL 0.0-0. 1 Not Available [facility] ([facility]) [address] [place], [address], 05/25/2024 11:27:20 05/25/19 25 05/25/2024 FSH AND LH LH 25.6 mIU/m L Adult Femal e Range Folli cular phase 2.4 - 12.6 Ovula tion phase 14.0 - 95.6 Lutea l phase 1.0 - 11.4 Postm enopa usal 7.7 - 58.5 Not Available [facility] ([facility]) [address] [place], [address], 05/25/2024 11:27:21 05/25/19 25 05/25/2024 FSH AND LH FSH 67.3 mIU/m L Adult Femal e Range Folli cular phase 3.5 - 12.5 Ovula tion phase 4.7 - 21.5 Lutea l phase 1.7 - 7.7 Postm enopa usal 25.8 - 134.8 Not Available [facility] ([facility]) [address] [facility], [place], [address], 05/25/2024 11:27:21 Result Notes None recorded. Problems Name Problem SNOMED Code Status Onset Date Resolution Date Notes Provider Name and Address Organization Details Recorded Time [facility] 93356701819 9104 Active 2018 Not Available [facility] 3 09:19:08 [facility] hyperten delilah 93457808 Active 2018 Not Available [facility] 3 09:19:08 Iron deficien cy anemia 52466796 Active 2018 Not Available [facility] 3 09:19:09 Type 2 diabetes mellitus 80549972 Completed 201802/21/2021 Felipe Adkins MD Attn: Accounting, [address] [facility], [place], [address], [facility] - [facility] 2 00:07:59 Gastroes ophageal reflux disease without esophagi tis 447121203 Active 2018 Not Available [facility] 3 09:19:08 Adult health examinat ion Active 2018 Not Available [facility] 3 09:19:08 Tobacco user 061472285 Active 2018 Not Available [facility] 3 09:19:08 Microalb uminuria 601710444 Active 2019 Not Available [facility] 3 09:19:08 Tobacco dependen ce syndrome 74722918 Active 2020 Not Available [facility] 3 09:19:09 [place]we[place] ht 403226242 Active 2021 Not Available [facility] 3 09:19:08 Patient noncompl iance - general 840185139 Active 2021 Not Available [facility] 3 09:19:08 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 051446861 Active 2021 Not Available [facility] 3 09:19:08 Anemia 232960490 Active 2021 Not Available [facility] 3 09:19:08 Menometr orrhagia 435298760 Active 2021 Not Available [facility] 3 09:19:08 Type 2 diabetes mellitus without complica tion 938535167 Active 2022 Not Available [facility] 3 09:19:08 Overacti ve urinary bladder 285770727 Active 2022 Felipe Adkins MD Attn: [address] [place], [address], [place] 3 14:59:53 Chronic obstruct rosa pulmonar y disease 95511476 Active Not Available [facility] 3 09:19:08 Smoker 58500633 Active Not Available [facility] 3 09:19:09 Acute exacerba tion of chronic obstruct rosa pulmonar y disease 753185368 Completed 03/10/2018 MILAGROS Saini SIESTUARDO 9 17:49:47 Chronic cough 41054949 Completed 06/21/2019 MILAG[facility] Saini - [facility] 0 16:56:55 Allergic rhinitis 96080826 Active Not Available [facility] 3 09:19:08 Sinusiti s 81058564 Completed 03/10/2018 Yolette reid, [place] [facility] 9 17:49:50 Acute back pain with sciatica 170268634 Active Not Available [facility] 3 09:19:08 Candidia sis of vagina 32170030 Active Not Available [facility] 3 09:19:09 Problem Notes None recorded. Procedures Surgical History Date Name Laterality Status Provider Name and Address Organization Details Recorded Time 4 Other completed Marii Huerta [place] [facility] 07/09/2023 12:33:20 3 Date of Last Pap Smear completed NEL Rose [facility] 11/04/2022 16:10:29 3 Endometrial Biopsy completed SYED Rivers- Attn: Accounting,[address] [place], [address], [facility] 04/25/2022 16:03:54 3 Dilation and Curettage completed Lilian Fleming MA [facility] 08/08/2014 15:08:31 1 Most Recent Mammogram completed Lilian Fleming MA [facility] 08/08/2014 15:09:03 1 Tubal Ligation completed Lilian Fleming MA [facility] 08/08/2014 15:08:31 1 Caesarean Section completed Lilian Fleming MA [facility] 08/08/2014 15:08:31 Imaging Results None recorded. Procedure Notes None recorded. Medical Equipment None Reported. Allergies Allergen ID Allergen Name Allergen Category Reaction Reaction Severity Criticality Documentation Date Start Date Code Code System Note Provider Name and Address Organization Details Recorded Time 93500 Product containin g penicilli n (product) medicatio n other severe Not available 08/08/2014 28132 8782 SNOMED ELVIA Kowalski [facility] 5 15:08:31 83958 Substance with sulfonami de structure and antibacte rial mechanism of action (substanc e) medicatio n rash severe Not available 08/08/2014 69202 8003 SNOMED Mary Adkins MD Attn: Darrell g,[address] [facility], [place], [address], [place] [facility] 0 14:32:02 91040 tetracycl ine medicatio n rash severe Not available 08/08/2014 36719 RxNorm Lilian Fleming MA null, [place] - [facility] 5 15:08:31 26492 erythromy rocco medicatio n rash severe Not available 08/08/2014 4053 RxNorm Kendrick Hawley MD Attn: Darrell g,[address] [facility], [place], [address], [place] - [facility] 5 10:52:10 Medications Name Sig Start Date Stop Date Status Note LastModified by Organization Details LastModified Time Prescript ion - Prior Authoriza tion Request 01/25 completed Not Available Not Available Not Available losartan 50 mg tablet TAKE 1 TABLET BY MOUTH EVERY DAY active Not Available Not Available No t Available medroxypr ogesteron e 10 mg tablet TAKE 2 TABLETS BY MOUTH THREE TIMES DAILY FOR 7 DAYS THEN TAKE 2 TABLETS BY MOUTH EVERY DAY FOR 3 WEEKS 06/10 completed Not Available Not Available Not Available atorvasta tin 40 mg tablet TAKE 1 TABLET BY MOUTH EVERY DAY active Not Available Not Available No t Available prednison e 10 mg tablet Take 2 tablets every 8 hours by oral route after meals for 2 days. 2014 active Not Available Not Available Not Avai lable nicotine 14 mg/24 hr daily transderm al patch APPLY 1 PATCH TOPICALL Y TO THE SKIN EVERY DAY 03/19 completed Not Available Not Available Not Available albuterol sulfate 2.5 mg/3 mL (0.083 %) solution for nebulizat ion INHALE 3 ML BY NEBULIZE R EVERY 6 HOURS DIRECTED 01/25 completed Not Available Not Available Not Available cetirizin e 10 mg tablet Take 1 tablet every day by oral route in the evening. 06/20 completed Not Available Not Available Not Available ibuprofen 800 mg tablet Take 1 tablet 3 times a day by oral route after meals. 06/20 completed Not Available Not Available Not Available fluconazo le 150 mg tablet Take 1 tablet every day by oral route. 10/25 completed Not Available Not Available Not Available benzonata te 200 mg capsule TAKE 1 CAPSULE BY MOUTH THREE TIMES DAILY NEEDED FOR COUGH 03/19 completed Not Available Not Available Not Available ranitidin e 300 mg tablet TAKE 1 TABLET BY MOUTH TWICE DAILY 11/03 completed Not Available Not Available Not Available Nicorette 2 mg gum Chew 1 piece of gum every 2 hours by oral route as needed. 2023 active Not Available Not Available Not Avai lable sumatript an 25 mg tablet Take 1 and repeat with migraine not more than 3/24 hrs 11/26 completed Not Available Not Available Not Available famotidin e 40 mg tablet TAKE 1/2 TABLET BY MOUTH TWICE DAILY 11/26 completed Not Available Not Available Not Available Medrol (Arturo) 4 mg tablets in a dose pack Take 2 tablets 3 times a day by oral route for 1 day. 11/03 completed Not Available Not Available Not Available prednison e 20 mg tablet TAKE 2 TABLETS BY MOUTH DAILY FOR 5 DAYS 03/19 completed Not Available Not Available Not Available miconazol e nitrate 2 % vaginal cream Insert 1 applicat orful every day by vaginal route at bedtime. 11/03 completed Not Available Not Available Not Available glipizide ER 5 mg tablet, extended release 24 hr Take 1 tablet every day by oral route in the morning. 10/25 completed Not Available Not Available Not Available clopidogr el 75 mg tablet TAKE 1 TABLET BY MOUTH DAILY AFTER LOADING DOSE active Not Available Not Available No t Available amlodipin e 5 mg tablet Take 1 tablet every day by oral route. 03/17 completed Not Available Not Available Not Available sulfameth oxazole 800 mg-trimet hoprim 160 mg tablet TAKE 1 TABLET BY MOUTH TWICE DAILY FOR 10 DAYS active Not Available Not Available No t Available famotidin e 20 mg tablet TAKE 1 TABLET BY MOUTH DAILY IN THE EVENING NEEDED active Not Available Not Available No t Available mefenamic acid 250 mg capsule 12/02 completed Not Available Not Available Not Available pravastat in 10 mg tablet Take 1 tablet every day by oral route at dinner. 11/26 completed Not Available Not Available Not Available Soma 350 mg tablet Take 1 tablet 3 times a day by oral route as directed for 14 days. 11/03 completed Not Available Not Available Not Available ferrous sulfate 325 mg (65 mg iron) tablet TAKE 1 TABLET BY MOUTH TWICE TIMES DAILY 06/20 completed Not Available Not Available Not Available ranitidin e 150 mg tablet Take 1 tablet twice a day by oral route as directed . 06/20 completed Not Available Not Available Not Available losartan 25 mg tablet TAKE 1 TABLET BY MOUTH EVERY DAY 09/18 completed Not Available Not Available Not Available nicotine 21 mg/24 hr daily transderm al patch Apply 1 patch every day by transder mal route. 07/08 completed Not Available Not Available Not Available omeprazol e 20 mg capsule,d elayed release TAKE 1 CAPSULE BY MOUTH EVERY DAY 11/02 completed Patient not taking due to anti-coa g interact ion Not Available Not Available Not Available aspirin 81 mg chewable tablet active Not Available Not Available Not Available monteluka st 10 mg tablet Take 1 tablet every day by oral route in the evening. 06/20 completed Not Available Not Available Not Available alcohol swabs APPLY TO CLEAN SKIN BEFORE BLOOD SUGAR AND INSULIN INJECTIO N GIVE TIMES DAILY active Not Available Not Available No t Available hydrochlo rothiazid e 25 mg tablet Take 1 tablet every day by oral route. 06/29 completed Not Available Not Available Not Available Levaquin 500 mg tablet Take 1 tablet every 24 hours by oral route as directed . 11/03 completed Not Available Not Available Not Available lovastati n 20 mg tablet TAKE 1 TABLET BY MOUTH EVERY DAY AT DINNER 06/25 completed Not Available Not Available Not Available levofloxa rocco 750 mg tablet TAKE 1 TABLET BY MOUTH DAILY 03/19 completed Not Available Not Available Not Available albuterol sulfate HFA 90 mcg/actua tion aerosol inhaler INHALE 2 PUFFS BY MOUTH FOUR TIMES DAILY NEEDED active Not Available Not Available No t Available fluticaso ne propionat e 50 mcg/actua tion nasal spray,ayde pension SHAKE LIQUID AND USE 1 SPRAY IN EACH NOSTRIL TWICE DAILY DIRECTED active Not Available Not Available No t Available medroxypr ogesteron e 150 mg/mL intramusc ular suspensio n Inject 1 mL by intramus cular route for 90 days. 2024 active Not Available Not Available Not Avai lable ipratropi um bromide 0.02 % solution for inhalatio n Inhale 2.5 mL every 6 hours by inhalati on route as directed . 01/25 completed Not Available Not Available Not Available naproxen 500 mg tablet TAKE 1 TABLET BY MOUTH TWICE DAILY 03/19 completed Not Available Not Available Not Available nicotine 7 mg/24 hr daily transderm al patch APPLY 1 PATCH TOPICALL Y TO THE SKIN EVERY DAY 03/19 completed Not Available Not Available Not Available hydroxyzi ne pamoate 25 mg capsule Take 1 capsule every day by oral route at bedtime. 10/07 completed Not Available Not Available Not Available insulin lispro (U-100) 100 unit/mL subcutane ous pen INJECT 12 UNITS UNDER THE SKIN TWICE DAILY active Not Available Not Available No t Available Mucinex 600 mg tablet, extended release Take 1 tablet 3 times a day by oral route as directed . 08/19 completed Not Available Not Available Not Available azithromy rocco 500 mg tablet TAKE 1 TABLET BY MOUTH EVERY DAY FOR 5 DAYS 06/15 completed Not Available Not Available Not Available medroxypr ogesteron e 150 mg/mL intramusc ular syringe ADMINIST ER 1 ML IN THE MUSCLE EVERY 3 MONTHS active Not Available Not Available No t Available cyclobenz aprine 5 mg tablet TAKE 1 TABLET BY MOUTH THREE TIMES DAILY NEEDED 10/07 completed Not Available Not Available Not Available rosuvasta tin 20 mg tablet TAKE 1 TABLET BY MOUTH DAILY active Not Available Not Available No t Available Ferrocite 324 mg (106 mg iron) tablet TAKE 1 TABLET BY MOUTH 1 TO 2 TIMES DAILY 07/08 completed Not Available Not Available Not Available Atrovent HFA 17 mcg/actua tion aerosol inhaler INHALE 2 PUFFS BY MOUTH FOUR TIMES DAILY NEEDED active Not Available Not Available No t Available budesonid e-formote rol HFA 160 mcg-4.5 mcg/actua tion aerosol inhaler INHALE 2 PUFFS BY MOUTH EVERY 12 HOURS DIRECTED 05/30 completed Not Available Not Available Not Available Lantus Solostar U-100 Insulin 100 unit/mL (3 mL) subcutane ous pen ADMINIST ER 32 UNITS UNDER THE SKIN DAILY active Not Available Not Available No t Available Dulera 100 mcg-5 mcg/actua tion HFA aerosol inhaler INHALE 2 PUFFS BY MOUTH TWICE DAILY 03/29 completed Not Available Not Available Not Available Brilinta 90 mg tablet TAKE 1 TABLET BY MOUTH TWICE DAILY active Not Available Not Available No t Available Brilinta active breathin g problems Not Available Not Available Not Available OneTouch Verio test strips USE TO TEST BLOOD SUGAR THREE TIMES DAILY active Not Available Not Available No t Available TRUEplus Insulin 0.5 mL 31 gauge x 5/16 syringe USE TO INJECT INSULIN DAILY active Not Available Not Available No t Available Victoza 3-Arturo 0.6 mg/0.1 mL (18 mg/3 mL) subcutane ous pen injector 11/26 completed Not Available Not Available Not Available Jardiance 10 mg tablet Take 1 tablet every day by oral route in the morning. active Not Available Not Available No t Available naloxone 4 mg/actuat ion nasal spray CALL 911. SPR CONTENTS OF ONE SPRAYER (0.1ML) INTO ONE NOSTRIL. REPEAT IN 2-3 MIN IF SYMPTOMS OF OPIOID EMERGENC Y PERSIST, ALTERNAT E NOSTRILS active Not Available Not Available No t Available OneTouch Verio Flex Meter USE TO TEST BLOOD SUGAR THREE TIMES DAILY BEFORE MEALS DIRECTED active Not Available Not Available No t Available TRUEplus Pen Needle 31 gauge x 5/16 USE TO INJECT FOUR TIMES DAILY active Not Available Not Available No t Available AirDuo RespiClic k 113 mcg-14 mcg/actua tion breath activated 1 puff twice daily 01/25 completed Not Available Not Available Not Available OneTouch Ultra Blue Test Strip USE TO CHECK BLOOD SUGAR once/day before meal/bed time daily 2020 active Not Available Not Available Not Avai lable OneTouch Delica Plus Lancet 33 gauge USE DIRECTED TO TEST BLOOD GLUCOSE TWICE DAILY BEFORE MEALS active Not Available Not Available No t Available ID NOW COVID-19 Test Kit TEST DIRECTED TODAY 03/27 completed Not Available Not Available Not Available BreStreamStari Aerospher e 160 mcg-9mcg- 4.8mcg/ac tuation HFA aerosol inhaler Inhale by inhalati on route for 30 days. 03/19 completed Not Available Not Available Not Available Vitals Date Recorded Body height Body mass index (BMI) Body weight Heart rate Systolic blood pressure Diastolic blood pressure Provider Name and Address Organization Details Last Updated DateTime 167.64 cm 28.7 kg/m2 61326.4 4 g 83 /min 151 mm[Hg] 87 mm[Hg] Jessica Beltran [facility] 16:52:28 Date Recorded Body height Provider Name an d Address Organization Details Last Updated DateTime 05/20/2024 167.64 cm Lyndsey Servin [facility] 05/10 17:00:35 Date Recorded Body mass index (BMI) Body weight Heart rate Systolic blood pressure Diastolic blood pressure Provider Name and Address Organization Details Last Updated DateTime 05/20/2024 29.6 kg/m2 04233.2 g 81 /min 153 mm[Hg] 81 mm[Hg] Jessica Beltran [facility] 17:03:18 Date Recorded Body height Body mass index (BMI) Body weight Systolic blood pressure Diastolic blood pressure Provider Name and Address Organization Details Last Updated DateTime 05/24/2024 167.64 cm 29.5 kg/m2 94009.4 g 169 mm[Hg] 83 mm[Hg] Alina Herring [facility] 16:11:38 Date Recorded Body height Body mass index (BMI) Body weight Oxygen saturation Oxygen saturation in Arterial blood by Pulse oximetry Heart rate Respiratory rate Body temperature Systolic blood pressure Diastolic blood pressure Provider Name and Address Organization Details Last Updated DateTime 167.64 cm 29.6 kg/m2 60577.2 g 97 % 97 % 104 /min 16 /min 96.9 [degF] 156 mm[Hg] 87 mm[Hg] Monika Christopher [place] [facility] 5 10:33:56 Date Recorded Body height Body mass index (BMI) Body weight Heart rate Systolic blood pressure Diastolic blood pressure Provider Name and Address Organization Details Last Updated DateTime 4 167.64 cm 28.2 kg/m2 19640.2 6 g 88 /min 149 mm[Hg] 82 mm[Hg] Jessica Hinson Devin [facility] 4 16:51:33 Social History Question Answer Notes LastModified by Organizat ion Details LastModified Time Tobacco Smoking Status Current Every Day Smoker Lilian Fleming MA null, [place] [facility] 08/08/2014 15:08:31 Do You Have An Advance Directive? No Information not available 05/30/2020 Are You Blind Or Do You Have Difficulty Seeing? Yes Sight Loss, Pt. Needs Glasses Have Not Had Them Updated Information not available 05/30/2020 What Is Your Level Of Caffeine Consumption? Moderate 1 Cup Of Coffee In The AM And Zero Calorie Tea And Water Throughout Day [email or web address] Information not available 07/09/2023 In The 14 Days Before Symptom Onset, Have You Had Close Contact With A Laboratory-confi rmed COVID-19 While That Case Was Ill? No Information not available 05/30/2020 In The 14 Days Before Symptom Onset, Have You Had Close Contact With A Person Who Is Under Investigation For COVID-19 While That Person Was Ill? No Information not available 05/30/2020 Have You Been To An Area Known To Be High Risk For COVID-19? No Information not available 05/30/2020 Are You Deaf Or Do You Have Serious Difficulty Hearing? No Information not available 05/30/2020 What Type Of Diet Are You Following? REGULAR Information not available 05/30/2020 What Is The Highest Grade Or Level Of School You Have Completed Or The Highest Degree You Have Received? [id number] Information not available 05/30/2020 Are There Any Guns Present In Your Home? No Information not available 05/30/2020 Live Alone Or With Others? With Others [email or web address] Information not available 08/08/2014 Do You Have A High School Diploma Or Higher Education? Yes Information not available 05/30/2020 Do You Sometimes Have To Miss Your Medical Appointments Due To Difficult Getting Transportation? No Information not available 05/30/2020 Do You Feel Unfairly Treated Due To Things Such As Race, Age, Gender, Disability Or Some Other Reason? No Information not available 05/30/2020 Do You Feel Physically And Emotionally Safe While Living At Home? Yes Information not available 05/30/2020 Do You Feel Physically And Emotionally Safe In Your Neighborhood Or Other Public Places? Yes Information not available 05/30/2020 What Was The Date Of Your Most Recent Tobacco Screening? 02/22/2024 Information not available 02/22/2024 How Many Children Do You Have? 4 [email or web address] Information not available 08/08/2014 What Is Your Current Pack Years? 30ormorepack years Information not available 05/30/2020 What Is Your Relationship Status? Information not available 05/30/2020 Do You Use Your Seat Belt Or Car Seat Routinely? Yes Information not available 05/30/2020 Smoke Alarm In Home Yes [email or web address] Information not available 08/08/2014 Do You Have Smoke And Carbon Monoxide Detectors In Your Home? Yes Information not available 05/30/2020 At What Age Did You Start Smoking Tobacco? 14 [email or web address] Information not available 08/08/2014 Are You Passively Exposed To Smoke? Yes Information not available 03/19/2023 How Much Tobacco Do You Smoke? 0.5 PPD Information not available 05/30/2020 Do You Use Sunscreen Routinely? No Information not available 05/30/2020 Has Tobacco Cessation Counseling Been Provided? Yes Information not available 06/15/2024 On What Date Was Tobacco Cessation Counseling Provided? 02/22/2024 [email or web address] Information not available 02/22/2024 How Many Years Have You Smoked Tobacco? 36 Information not available 05/30/2020 Sex: Female Functional Status Question Answer Note LastModified by Organizat ion Details LastModified Time Do you use any illicit or recreational drugs? No Information not available 05/30/2020 Do you or have you ever used any other forms of tobacco or nicotine? No Information not available 05/30/2020 What is your level of alcohol consumption? None [email or web address] Information not available 08/08/2014 Are you currently employed? No disabled Information not available 05/30/2020 Are you able to care for yourself? Yes [email or web address] Information n ot available 08/08/2014 What is your exercise level? None Information not available 05/30/2020 Mental Status Question Answer Note LastModified by Organization D etails LastModified Time Do you feel stressed (tense, restless, nervous, or anxious, or unable to sleep at night)? [id number] Information not available 05/30/2020 Family History Relationship Description Onset Age of this Age Resolved Age Notes LastModified by Organization Details LastModified Time Mother Cerebrovascu lar accident [email or web address] Not available 15:08:31 Mother Dementia [email or web address] Not availab le 08/08/2014 15:08:31 Mother Depressive disorder [email or web address] Not available 08/08 15:08:31 Mother Heart disease 42 [email or web address] Not available 2017 12:13:41 Mother Diabetes mellitus [email or web address] Not available 2019 14:32:56 Sister Diabetes mellitus [email or web address] Not available 2018 15:07:16 Sister Coronary artery bypass graft [email or web address] Not available 14:33:35 Son Autistic disorder [email or web address] Not available 2019 14:34:08 Daughter [place] son-White pattern [email or web address] Not available 2019 14:34:17 Notes:No new reported 1,10/07/22. 07/09/23, 06/15/24 Medical History Condition Response COPD Y Anxiety Disorder Y Acid Reflux (GERD) Y Headaches Y Kidney or Bladder Problems Y Asthma Y Allergies Y Anemia Y Diabetes Y Gynecological History Statement/Question Response Abnormal Pap N Flow Heavy Date of LMP 10/27/2022 On BCP's at Conception? N Date of Last Pap Smear 10/26/2022 Current Control Method Tubal Ligat ion Most Recent Mammogram 02/09/2010 Age at First Child 17 LMP Unknown Obstetrics History GPAL:G 14 P 4 0 10 4 Type Value Full Term 4 Spontaneous 10 Living 4 Total 14 Immunizations Vaccine Type Date Status Note Provider Nam e and Address Organization Details Recorded Time SARS-COV-2 (COVID-19) vaccine, UNSPECIFIED 05/07/19 21 completed Not Available [facility] 03/16/2022 09:19:09 COVID-19, mRNA, LNP-S, PF, 100 mcg/0.5mL dose or 50 mcg/0.25mL dose 06/23/19 21 completed Not Available [facility] 06/15/2024 10:21:13 COVID-19, mRNA, LNP-S, PF, 100 mcg/0.5mL dose or 50 mcg/0.25mL dose 03/10/19 22 completed Not Available [facility] 06/15/2024 10:21:13 Influenza, split virus, quadrivalent, PF 11/04/19 18 completed Not Available [facility] 02/26/2019 02:47:15 Influenza, split virus, quadrivalent, preservative 11/27/19 22 completed Felipe Adkins MD Attn: Accounting,[address] [place], [address], [facility] - [facility] 11/26/2021 23:33:01 Pneumococcal conjugate PCV20, polysaccharide [id number] conjugate, adjuvant, PF 07/09/19 24 cancelled product out of stock Kendrick Hawley MD Attn: Accounting[address] [place], [address], [place] [facility] 07/12/2023 09:18:39 Influenza, split virus, quadrivalent, preservative 12/23/19 15 completed Not Available [facility] 02/26/2019 02:32:11 Past Encounters Encounter ID Performer Location Encounter Start Date Encounter Closed Date Diagnosis/Indication Diagnosis SNOMED-CT Code Diagnosis ICD10 Code Diagnosis Note [id number] MD Joana Hope ([facility]) [address] [facility] [place] [address] 08/08/2014 14:35:06 08/08/2014 16:15:56 Acute exacerbation of chronic obstructive pulmonary disease 865870144 Smoker [id number] MD Joana Hope ([facility]) [address] [place] [address] 09/14/2014 11:24:02 09/14/2014 17:08:47 Chronic obstructive pulmonary disease 95326279 Chronic cough 57041170 Allergic rhinitis 16754047 History of multiple allergies 920264663 Sinusitis 22890545 [id number] MD Joana Hope ([facility]) [address] [place] [address] 12/22/2014 15:20:49 12/22/2014 17:54:18 Chronic obstructive pulmonary disease 24015234 J44.9 patient never got radiology studies done, is using inhalers as prescribed . still smoking!!! Chronic cough 07520568 R 05 Allergic rhinitis 962512 04 J30.9 Administra tion of influenza vaccine 80680474 Z23 [id number] MD Joana Hope ([facility]) [address] [place] [address] 01/05/2015 10:51:05 01/05/2015 12:10:33 Acute back pain with sciatica 826443735 M54.42 [id number] Kendrick Hawley MD [place] [address] [address] 11/03/2017 11:56:06 11/05/2017 15:42:14 Adult health examination 327653569 Z00.00 Counseled on the importance of healthy diet and exercise for weight loss. Lab work today. Advised adequate calcium intake through dairy and dark leafy vegetables . Adequate hydration and decrease soda intake. Advised on immunizati ons--given Influenza. Administra tion of influenza vaccine 82190858 Z23 Elevated blood-pressure reading without diagnosis of hypertension 797472173 R03.0 will f/u in 1 month for blood pressure evaluation Tobacco de pendence syndrome 24188675 F17.200 Allergic rhinitis 695718 04 J30.1 Counseled on allergies- continue home medication s. Decongesta nt (Coricidan ) as needed. Stay away from triggers. Shower after being outside. Saline nasal wash as needed. Moderate c hronic obstructive pulmonary disease 234575352 J44.9 Heartburn 80904468 R12 Counseled on heartburn and medication . Encouraged low fat diet, alcohol, spicy greasy foods and caffeinate d beverages. Keep head of bed elevated at night. Do not eat 2-3 hours prior to bedtime. Body mass index 30+ - obesity 167806020 Z68.30 [id number] MD Joana Cohen [address] [facility] [address] [place] [address] 12/03/2017 11:57:45 12/03/2017 15:01:25 Essential hypertension 98651095 I10 Counseled on HTN and medication . Encouraged to monitor blood pressures with goal <130/80. Encouraged healthy diet and exercise. Counseled on smoking cessation. Anxiety 31001304 F41.9 Iron defic iency anemia 44471015 D50.9 Counseled on anemia, testing and to continue medication -take iron 1 hour prior to meals along with orange juice to help with absorption . Apt with [employer] ARCHITECT michael and when home issues resolved must see GI Noncomplia nce with treatment 4094396 Z91.19 [id number] MD Joana CLARKE 14 IM [address] [facility] [address] [place] [address] 03/09/2018 13:39:26 03/11/2018 09:12:25 Essential hypertension 97506560 I10 BP borderline . Was started on Losartan 11/2017. Add Amlodipine 5mg. Lifestyle changes. RTC 3mo. Iron defic iency anemia 57485683 D50.9 Improving after starting iron. Pt stopped for a while. Menorrhagi a slowing down. Denies GI bleed. Resume FeS. Recheck later. Perimenopausal state 821 0787929 48620 Z78.0 PHQ 9 = 3 / JUANCARLOS 7 = 5. C/o of mood swings and hot flashes. Pt does not want to be on medication . Has counseling coming up in 04/2018 Type 2 bety betes mellitus 13273395 E11.9 30 years ago. A1C 8.1 in 10/2017. Declined meds. Want to lose weight first. Pending eye doctor. RTC 3mo. Chronic ob structive pulmonary disease 15310250 J44.9 Likely dx with PFT. On Singulair, Ventolin 1-2 x day, Duoneb, Cetirizine . Adding Duerla for better control. Allergic rhinitis 114775 04 J30.9 Stable on Flonase Gastroesop hageal reflux disease without esophagitis 147633885 K21.9 Stable on ranitidine Heartburn 42379598 R12 duplicate Smoker 41663997 F17.200 Not ready to quit. Understood risks and benefits. [id number] MD Joana CLARKE 14 [address] [facility] [address] [place] [address] 06/23/2018 14:45:49 06/29/2018 14:34:42 Chronic obstructive pulmonary disease 25102543 J44.9 02/2018: Likely dx with PFT. On Singulair, Ventolin 1-2 x day, Duoneb, Cetirizine . Adding Duerla for better control. 06/2018: Pt not using inhaler daily as prescribed . Also has neb. Encourage proper use of meds. Visual disturbance 97494 001 H53.9 Diabetic. Refer to opthalmolo gy Type 2 bety betes mellitus 24316887 E11.9 02/2018: 30 years ago. A1C 8.1 in 10/2017. Declined meds. Want to lose weight first. Pending eye doctor. RTC 3mo. 06/2018: lost 5 pounds. Dropped almost all sweets. Cut down on carb. Pt does not want to be on medication . Defer med management for 3mo. Essential hypertension 17520887 I10 02/2018: BP borderline . Was started on Losartan 11/2017. Add Amlodipine 5mg. Lifestyle changes. RTC 3mo. Addendum: dizzy with Amlodipine 5mg? Try HCTZ. 06/2018: BP 144/80. She is concerned about HCTZ as well. We will increase Losartan from 25mg to 50mg. RTC 3mo. Iron defic iency anemia 83873335 D50.9 02/2018: Improving after starting iron. Pt stopped for a while. Menorrhagi a slowing down. Denies GI bleed. Resume FeS. Recheck later. 06/2018: Rechecking labs. Perimenopausal state 979 4109126 19370 Z78.0 02/2018: PHQ 9 = 3 / JUANCARLOS 7 = 5. C/o of mood swings and hot flashes. Pt does not want to be on medication . Has counseling coming up in 04/2018: on/off heavy periods. Adult heal th examination 707546368 Z00.00 [facility] - used to have one, lost f/u. Was supposed to have some kind of injection instead of hysterecto my. f/u with County Historian. Colonoscop y - declined. Cologuard not covered, likely. FOBT. Tobacco user 592389597 Z 72.0 Not ready to quit. Understood risks and benefits. [id number] MD Joana CLARKE 14 IM [address] [facility] [address] [place] [address] 06/21/2019 09:41:19 06/22/2019 10:21:40 Allergic rhinitis 87310202 J30.9 Stable on Flonase Chronic ob structive pulmonary disease 01436186 J44.9 02/2018: Likely dx with PFT. On Singulair, Ventolin 1-2 x day, Duoneb, Cetirizine . Adding Duerla for better control. 06/2018: Pt not using inhaler daily as prescribed . Also has neb. Encourage proper use of meds. 06/2019: Recent 2mo with upper respirator y issues - runny nose. Has been using neb and albuterol multiple times daily. Add Symbicort. She will call if persistent . Essential hypertension 68305617 I10 02/2018: BP borderline . Was started on Losartan 11/2017. Add Amlodipine 5mg. Lifestyle changes. RTC 3mo. Addendum: dizzy with Amlodipine 5mg? Try HCTZ. 06/2018: BP 144/80. She is concerned about HCTZ as well. We will increase Losartan from 25mg to 50mg. RTC 3mo. Gastroesop hageal reflux disease without esophagitis 909890074 K21.9 Stable on famotidine . Iron defic iency anemia 71700010 D50.9 02/2018: Improving after starting iron. Pt stopped for a while. Menorrhagi a slowing down. Denies GI bleed. Resume FeS. Recheck later. 06/2018: Rechecking labs. 06/2019: Ferritin improved with iron supplement s. Not on Fe. Still on/off periods. Had negative PAP last year per pt. Perimenopausal state 689 6879669 48168 Z78.0 02/2018: PHQ 9 = 3 / JUANCARLOS 7 = 5. C/o of mood swings and hot flashes. Pt does not want to be on medication . Has counseling coming up in 04/2018: on/off heavy periods. 06/2019: per pt, she had negative PAP in 2018 with [facility] Histor[facility]. Not on Fe. Type 2 bety betes mellitus 06414942 E11.9 02/2018: 30 years ago. A1C 8.1 in 10/2017. Declined meds. Want to lose weight first. Pending eye doctor. RTC 3mo. 06/2018: lost 5 pounds. Dropped almost all sweets. Cut down on carb. 06/2019: Not ready for meds. Home glucose < 160s per patient. [id number] MD Joana Hopkins 14 IM [address] [facility] [address] [place] [address] 01/26/2020 09:15:51 01/27/2020 11:31:14 Essential hypertension 85027289 I10 clinically feels OKLow salt dieton losartan 25mg daily Uncontroll ed type 2 diabetes mellitus 128354824 E11.65 Last A1c in June 2018 was 8.5Has been controllin g with life stule modificati on.Still uses diet pepsi and spelda, Try to wean offCheck labs and consider medication in future. Gastroesop hageal reflux disease without esophagitis 189840726 K21.9 Loose weight , avoid soda, spicy stuff, Stop smokingUse medication as prescribed . Chronic ob structive pulmonary disease 16697577 J44.9 Slow down and quit smoking.Us e inhalers as prescribed Atrovent sentD/c neb rx. Tobacco de pendence syndrome 93536561 F17.200 Recommend to slow down and quit at the earliest- upto 1 PPD Perimenopausal state 623 8425864 59824 Z78.0 Somewhat heavier bleeding with cycle, but improving Allergic rhinitis 028971 04 J30.9 Controlled only with flonase Migraine 63595312 G43.90 9 Gets it during the menstrual cycle.Avoi d known tiggers.Us e sumatripta n Long-term drug therapy 924643234 Z79.899 Microalbuminuria 1249165 06 R80.9 Will f/uon losartan. [id number] MD Joana Hopkins 14 IM [address] [facility] [place] [address] 05/30/2020 08:48:27 05/31/2020 14:28:29 Microalbuminuria 728295988 R80.9 Will f/uon losartan. Essential hypertension 49513375 I10 clinically feels OKLow salt dieton losartan 25mg daily Chronic ob structive pulmonary disease 81616469 J44.9 Slow down and quit smoking.Us e inhalers as prescribed Atrovent sentD/c neb rx. Gastroesop hageal reflux disease without esophagitis 158163939 K21.9 Loose weight , avoid soda, spicy stuff, Stop smokingUse medication as prescribed . Uncontroll ed type 2 diabetes mellitus 782106927 E11.65 Last A1c in June 2018 was 8.5 Has been controllin g with life style modificati on. Still uses diet pepsi and splenda, Try to wean off Check labs and consider medication in future. 05/30/20 Home BS higher, agree to consider medication (other than metformin) Start on glipizide 5mg daily and refer to poultry debeaker Call back with BS readings in 1 wk wants to do labs after 2 nd covid shot on 06/06/20! Will start on pravastati n 10mg as well Tobacco de pendence syndrome 94858719 F17.200 Recommend to slow down and quit at the earliest- upto 1/2 PPD Renewal of prescription 912078068 Z76.0 Long-term drug therapy 784711205 Z79.899 Screening for malignant neoplasm of colon 613226053 Z12.11 Screening mammography 24 211342 Z12.31 [id number] MD Joana Hopkins 14 IM [address] [facility] [place] [address] 10/25/2020 08:25:05 10/26/2020 07:16:26 Uncontrolled type 2 diabetes mellitus 760432187 E11.65 Last A1c in June 2018 was 8.5 Has been controllin g with life style modificati on. Still uses diet pepsi and splenda, Try to wean off Check labs and consider medication in future. 05/30/20 Home BS higher, agree to consider medication (other than metformin) Start on glipizide 5mg daily and refer to poultry debeaker Call back with BS readings in 1 wk wants to do labs after 2 nd covid shot on 06/06/20! Will start on pravastati n 10mg as well 1Yet to do labsCouldn 't tolerate glipizide 'making her jittery' hence didn't takle it - adjusted dietTry Jardiance 10mg daily if covered- helps her to loose weight too(If not covered consider GLP 1 agonist- denies h/o nor f/h thyroid CA nor MEN syndrome)P t to call us with BS readings and do labs in 3 months from the new Rx Essential hypertension 87187529 I10 clinically feels OKLow salt dieton losartan 25mg daily Chronic ob structive pulmonary disease 04798641 J44.9 Slow down and quit smoking.Us e inhalers as prescribed Atrovent sentD/c neb rx. Microalbuminuria 2151916 06 R80.9 Will f/uon losartan. Gastroesop hageal reflux disease without esophagitis 295443350 K21.9 Loose weight , avoid soda, spicy stuff, Stop smokingUse medication as prescribed . Tobacco de pendence syndrome 52994322 F17.200 Recommend to slow down and quit at the earliest- upto 1/2 PPD Long-term drug therapy 895463944 Z79.899 Screening for malignant neoplasm of colon 049782059 Z12.11 Anxiety 79197890 F41.9 Following recent bus travel accident of her daughterTr y hydroxyzin e 25 mg before bedtime PRN Screening mammography 24 659779 Z12.31 [id number] MD Joana Hopkins 14 IM [address] [facility] [address] [place] [address] 11/26/2021 15:43:45 11/28/2021 09:47:16 Uncontrolled type 2 diabetes mellitus 635371982 E11.65 11/06/20Pt called back having issue now with Rikkidiaurora carmelitaMarin start on lantus 12 units at dinner and have her do labs MICHAEL and will refer to Endo to be seen earlier.Pt to call with BS readings in 1 wk right away if <70 consistent ly11/26/21 Under care by Sandra Swann NPA1c in June Endo visit was 10.0-suppo sed to be on Lantus 20 daily + Victoza 1.2mg dailyPer the pt latest A1c @ Endo was 7.5 and on lantus 28 units dailyRefer to eye Essential hypertension 61427685 I10 Mildly elevated ran out losartanRT C in 2 wks to check BP Chronic ob structive pulmonary disease 93507886 J44.9 Slow down and quit smoking.Us e inhalers as prescribed Atrovent sent Gastroesop hageal reflux disease without esophagitis 806636151 K21.9 Loose weight , avoid soda, spicy stuff, Stop smokingUse medication as prescribed . Tobacco de pendence syndrome 10932478 F17.200 Recommend to slow down and quit at the earliest- upto 1/2 PPD Overweight 208553215 E66 .3 Recommend to loose weight with diet control and exercise. Patient no ncompliance - general 339645729 Z91.19 Patient was educated about the importance and necessity of regular f/u with all providers , take medication s and do labs per the need by your providers Long-term drug therapy 638323868 Z79.899 Administra tion of influenza vaccine 20536784 Z23 no issue before Renewal of prescription 193875415 Z76.0 Menorrhagia 088964195 N9 2.0 Vs perimenopa usal- Used to see times gets iron tranfusion Refer to County Historian [id number] Tracee Myers, PATIENT REGISTRATION REPRESENTATIVE- Joana 14 OB [address] [facility] [place] [address] 03/27/2022 14:08:06 03/28/2022 18:11:46 Menorrhagia 840097421 N92.0 Will order pelvic ultrasound and labs. Pt advised on treatment options for fibroids, if found on u/s including but not limited to control use. Pt educated on other causes of menorraghi a including but not limited to constipati on or bladder issues, hormone imbalances , stress, menopausal symptoms. Pt verbalized understand ing. Will follow up pending results. Chronic anemia 526485900 D64.9 Will refer to hematology . Pt v/u. [id number] MD Joana Hopkins 14 IM [address] [facility] [place] [address] 04/04/2022 15:03:56 04/07/2022 15:29:46 Mixed hypercholesterolemia and hypertriglyceridemia 809064657 E78.2 TC 179 TG 180 LDL 113control BS betterAdd lovastatin 20mg at dinner-Cut back on red meat oil stuff Chronic ob structive pulmonary disease 76989973 J44.9 Slow down and quit smoking.Us e inhalers as prescribed Atrovent sent Essential hypertension 68347484 I10 Mildly elevated ran out losartanPr efer taking 1/2 of 50mg BIDCall if still home BP higher Tobacco de pendence syndrome 58139295 F17.200 Recommend to slow down and quit at the earliest- upto 1/2 PPD Gastroesop hageal reflux disease without esophagitis 042716370 K21.9 Loose weight , avoid soda, spicy stuff, Stop smokingUse medication as prescribed . Uncontroll ed type 2 diabetes mellitus 307004721 E11.65 Under care by Sandra Swann NPA1c in June Endo visit was 10.0-suppo sed to be on Lantus 20 daily + Victoza 1.2mg dailyPer the pt latest A1c @ Endo was 7.5 and on lantus 28 units dailyRefer to eye04/04/[address] but BS 110-230sNo t seen eye Menorrhagia 163639473 N9 2.0 Under care by County Historian- on [facility] [place] per the ptBleeding PV better Screening mammography 24 027130 Z12.31 Screening for malignant neoplasm of colon 172948271 Z12.11 Overweight 662003478 E66 .3 Recommend to loose weight with diet control and exercise. Iron defic iency anemia 06653613 D50.9 Under care by Hematologi st (due to menorrhagi a)On iron replacemen t. [id number] SYED Rivers-YONATAN Eckert 14 OB [address] [facility] [address] [place] [address] 04/25/2022 15:29:52 04/28/2022 11:20:44 Postmenopausal bleeding 59907598 N95.0 EMB perfomed without issue. Pt educated on risks/bene fits/side effects from EMB and reason for doing procedure. Pt verbalized understand ing. Pt understand s nothing in vagina for 7 days and to call office if green discharge, pain, fever develop. Will follow up pending test results. Gynecologi c examination 61238313 Z01.419 1. Counseled regarding prevention of STD's , condom use and prevention . 2. Counseled regarding contracept rosa options, risk factors and side effects. 3. Advised avoidance of tobacco, alcohol, and drugs . 4. Counseled regarding folic acid supplement ation, calcium needs and prevention of osteoporos is . 5. BSE reviewed and recommende d. 6. Follow up in one year or sooner if needed. Obesity 591604254 E66.9 Smoker 40206793 F17.828 [id number] [facility] Joana 14 OB [address] [facility] [place] [address] 07/11/2022 14:24:17 07/14/2022 07:39:12 Contraception care management 023830284 Z30.9 1. All forms of control reviewed with patient including risks, benefits, pros and cons. 2. Patient verbalized understand ing of all forms and that abstinence is the only true form of control. 3. Condom use reviewed as well and prevention and transmissi on of STD's. 4. Depo injection given 5. Will return q 3 months for injections , sooner if needed. [id number] SYED RiversYONATAN Bernard 14 OB [address] [facility] [place] [address] 10/02/2022 15:59:34 10/03/2022 08:58:08 Contraception care management 288073186 Z30.9 1. All forms of control reviewed with patient including risks, benefits, pros and cons. 2. Patient verbalized understand ing of all forms and that abstinence is the only true form of control. 3. Condom use reviewed as well and prevention and transmissi on of STD's. 4. Depo injection given 5. Will return q 3 months for injections , sooner if needed. [id number] MD Joana Hopkins 14 IM [address] [facility] [place] [address] 10/07/2022 14:04:49 10/10/2022 15:44:10 Type 2 diabetes mellitus without complication 110274959 E11.9 Under care by Sandra SwannA1c 9.0 08/07/22 Endo officeBydu christal was not coveredSti ll home BS in 165-200s Essential hypertension 74213399 I10 Controlled . Ct same with low salt diet Mixed hypercholesterolemia and hypertriglyceridemia 435792265 E78.2 TC 179 TG 180 LDL 113control BS betterAdd lovastatin 20mg at dinner-Cut back on red meat oil stuff?Filling lovastatin check labs and adjust Chronic ob structive pulmonary disease 03325295 J44.9 Slow down and quit smoking.Us e inhalers as prescribed Atrovent sent 3Prefer alternativ e to atrovent, try breztri Iron defic iency anemia 84630988 D50.9 Under care by Hematologi st (due to menorrhagi a-postmeno pausalOn iron replacemen t.(had multiple IV iron prior)Feel ing better with no recent bleeding Tobacco de pendence syndrome 52077124 F17.200 Recommend to slow down and quit at the earliest- upto 1PPD- prefer nicotine patch (expecting a grand baby next month) Overweight 108576420 E66 .3 Recommend to loose weight with diet control and exercise. Screening for malignant neoplasm of colon 508786370 Z12.11 Screening mammography 24 594396 Z12.31 Long-term drug therapy 237895851 Z79.899 Sleep alexys mauro disturbance 87942978 G47.9 Wakes up with non-restfu l sleep and feels tired in the daytimeWas diagnosed before, refused due to disturbanc e to her - explained the consequenc es also considerat ion of 'Inspire' [id number] MD Joana Hopkins [address] [place] [address] [place] [address] 10/24/2022 14:20:45 10/28/2022 15:38:35 Overactive urinary bladder 637722464 N32.81 Recommende d kegel exercises and timed bathroom visit.sign ed off for depends [id number] SYED Rivers-YONATAN Bernard 14 OB [address] [facility] [place] [address] 11/04/2022 16:02:07 11/05/2022 08:05:07 Menorrhagia 412169009 N92.0 Will order armature balancer surgical consult. Pt advised on treatment options for fibroids, if found on u/s including but not limited to control use. Pt educated on other causes of menorraghi a including but not limited to constipati on or bladder issues, hormone imbalances , stress, menopausal symptoms. Pt verbalized understand ing. Will follow up pending results. [id number] [facility] Joana 14 OB [address] [facility] [place] [address] 12/30/2022 16:09:13 12/31/2022 11:34:42 Surveillance of depot contraception done 7947058689 9104 Z30.42 [id number] SYED RiversYONATAN Bernard 14 OB [address] [facility] [place] [address] 03/19/2023 16:07:30 03/20/2023 12:54:56 Surveillance of depot contraception done 6671035156 9104 Z30.42 1. All forms of control reviewed with patient including risks, benefits, pros and cons. 2. Patient verbalized understand ing of all forms and that abstinence is the only true form of control. 3. Condom use reviewed as well and prevention and transmissi on of STD's. 4. Depo injection given 5. Will return q 3 months for injections , sooner if needed. Overweight 563734508 E66 .3 Smoker 12452248 F17.200 Positive s creening for depression on PHQ-9 (Patient Health Questionnaire 9) 6912316032 12443 Z13.31 [id number] NATE Rivers 14 OB [address] [facility] [place] [address] 06/11/2023 12:03:54 06/15/2023 07:39:13 Surveillance of depot contraception done 8797729839 9104 Z30.42 1. All forms of control reviewed with patient including risks, benefits, pros and cons. 2. Patient verbalized understand ing of all forms and that abstinence is the only true form of control. 3. Condom use reviewed as well and prevention and transmissi on of STD's. 4. Depo injection given 5. Will return q 3 months for injections , sooner if needed. [id number] MD Joana Cohen 14 IM [address] [facility] [place] [address] 07/09/2023 12:21:08 07/13/2023 16:19:15 Type 2 diabetes mellitus 00440825 E11.9 Overweight 614724792 E66 .3 HIV screen ing declined 0321758900 54538 Z53.20 Smoker 50088023 F17.200 1/2 ppd Trying to give up smoking 245009333 Z72.0 History of myocardial infarction 409524048 I25.2 in June 2023 and under active care of her cardiologi st Administra tion of pneumococcal vaccine 86541746 Z23 Gastroesop hageal reflux disease 610242015 K21.9 [id number] MD Joana Kline 14 OB [address] [facility] [place] [address] 09/08/2023 17:02:25 09/09/2023 08:43:22 Surveillance of depot contraception done 7675229595 04 Z30.42 1. All forms of control reviewed with patient including risks, benefits, pros and cons. 2. Patient verbalized understand ing of all forms and that abstinence is the only true form of control. 3. Condom use reviewed as well and prevention and transmissi on of STD's. 4. Depo injection given 5. Will return q 3 months for injections , sooner if needed. [id number] MD Joana Kline [address] [place] [address] [place] [address] 12/03/2023 16:41:41 12/10/2023 09:25:30 Smoker 01304357 F17.200 Surveillan ce of depot contraception done 3885649082 04 Z30.42 Due to pt's high bp, injection withheld. Refilled bp meds for pt and pt will return after a few days for bp check. Pt v/u. Essential hypertension 93920090 I10 Pt advised to make appt with pcp. Pt denies headaches, blurry vision, dizziness or palpitatio ns. Pt advised to go to ED if needed if symptoms worsen. [id number] MD Joana Kline 14 [address] [facility] [place] [address] 12/04/2023 16:36:32 12/10/2023 09:52:05 Surveillance of depot contraception done 5851189650 04 Z30.42 Smoker 58268171 F17.692 [id number] MD Joana Kline 14 OB [address] [facility] [place] [address] 02/22/2024 16:27:45 03/01/2024 11:41:08 Surveillance of depot contraception done 5006336488 9104 Z30.42 [id number] MD Joana Kline 14 OB [address] [facility] [place] [address] 05/20/2024 16:31:57 05/23/2024 12:26:36 Surveillance of depot contraception done 2854961303 9104 Z30.42 [id number] MD Joana Kline 14 OB [address] [facility] [place] [address] 05/24/2024 16:02:58 05/25/2024 13:53:06 Menorrhagia 288011254 N92.0 Will order armature balancer surgical consult. Pt advised on treatment options for fibroids, if found on u/s including but not limited to control use. Pt educated on other causes of menorraghi a including but not limited to constipati on or bladder issues, hormone imbalances , stress, menopausal symptoms. Pt verbalized understand ing. Will follow up pending results. [id number] MD Joana Cohen 14 IM [address] [facility] [place] [address] 06/15/2024 10:20:27 06/17/2024 12:54:19 Site-specific infective disorders of skin 914420605 L08.9 Smoker 32150624 F17.200 1/2 ppd Chronic ob structive pulmonary disease 40668022 J44.9 Positive s creening for depression on PHQ-9 (Patient Health Questionnaire 9) 3214090268 04820 Z13.31 PHQ=5/27; observatio n for now--pt barely qualifies for sxs of depression Health Concerns Section Related Observation LastModified by Organization Detai ls LastModified Time None Recorded Concern Status LastModified by Organization Details LastModified Time None Recorded Advance Directives Directive N: Payers Encounter Date Sequence Insurance Name Policy Number Policy Judd Covered Member ID Judd Member ID Guarantor Name 12/04/2023 1 [facility] (MEDICAID HMO) [id number] Tamanna Goss [id number] Tamanna Baine 02/22/2024 1 [facility] (MEDICAID HMO) [id number] Tamanna Baine [id number] Tamanna Baine 05/20/2024 1 [facility] (MEDICAID HMO) [id number] Tamanna Baine [id number] Tamanna Baine 05/24/2024 1 [facility] (MEDICAID HMO) [id number] 0003 Tamanna Baine [id number] Tamanna Baine 06/15/2024 1 [facility] (MEDICAID HMO) [id number] Tamanna Baine [id number] Tamanna Baine Notes Date Note Type Note Provider Name and Address Organization Details Recorded Time 12/04/2023 text/html Annual GYNReport ed bypatient.Menstrua l cycle:Severe dysmenorrhea;Reynaldo rhagia Urinary symptoms:No hematuria; No incontinence Vulva:No genital lesion Vagina:Normal vaginal discharge Breast:No breast pain; No breast lump; No nipple discharge Sexual complaints:No sexual complaints; No pain during intercourse; Normal libido Menopausal Symptoms:No menopausal symptoms; Normal vaginal lubrication Psychological symptoms:No depression; No anxiety; No PMDD Preventive measures:Encourage self breast examination; Encourage regular exercise; Encourage no tobacco use; Encourage regular mammograms starting age 40; Needs to schedule mammogram 53 yo here for depo- hx smoking, copd, dm2, anemia, gerd, htn, iron transfusions, blood transfusions, high cholesterol, medicaton non compliance- pelvic ultrasound 05/12/22 small fibroids- emb 04/25/22- pap wnl 04/25/22- last blood transfusion was in December- [facility] no cycle since April 09 NATE Rivers Attn: [address] [place], [address], [facility] 12/08/2023 10:36:37 05/24/2024 text/html Annual GYNReport ed bypatient.Menstrua l cycle:Severe dysmenorrhea;Reynaldo rhagia Urinary symptoms:No hematuria; No incontinence Vulva:No genital lesion Vagina:Normal vaginal discharge Breast:No breast pain; No breast lump; No nipple discharge Sexual complaints:No sexual complaints; No pain during intercourse; Normal libido Menopausal Symptoms:No menopausal symptoms; Normal vaginal lubrication Psychological symptoms:No depression; No anxiety; No PMDD Preventive measures:Encourage self breast examination; Encourage regular exercise; Encourage no tobacco use; Encourage regular mammograms starting age 40; Needs to schedule mammogram 54 yo here for depo conversation- hx smoking, copd, dm2, anemia, gerd, htn, iron transfusions, blood transfusions, high cholesterol, medicaton non compliance- pelvic ultrasound 05/12/22 small fibroids- emb 04/25/22- pap wnl 04/25/22- last blood transfusion was in December- sole primary care sales representative of one year old granddaughter, is wanting permanent solution to bleeding and hoping to get off of depo SARIAH RiversP- Attn: [address] [place], [address], [facility] 05/24/2024 16:35:48 06/15/2024 text/html Per intake note. Kendrick rodríguez MD Attn: [address] [place], [address], [facility] 06/17/2024 07:23:58 OBGyn Episode No OBEpisode recorded.
--- OUTSIDE RECORDS SUMMARY | 2024-07-09 17:42 | XMS_ITS | CONTINUITY OF CARE DOCUMENT ---
Author Name susy jain Address Unknown Organization [facility] Address [address] [place] [address] Phone [phone] Care Team Providers Care City Planner Name Role Phone Hosea MALONE, [facility] Unavailable [phone] Petey MALONE, Candelario Unavailable [phone] PROBLEMS Condition Status Date Provider Notes Coronary Heart Disease active Petey Guo Diabetes, Type 2 active p Petey MALONE Hypertension active p Petey MALONE Hypothyroidism active p Petey MALONE C O P D active Petey MALONE Hypercholesterolemia active p Petey MALONE Tobacco abuse active Candelario Petey MALONE ENCOUNTERS Date Type Provider Location Encounter Diag nosis - In-person encounter Office Visit [facility]ey [facility] Coronary Heart DiseaseDiabetes, Type 2HypertensionHypothyroidismC O P DHypercholesterolemiaTobacco abuse VITAL SIGNS Date Observation Value Provider Body Mass Index (Ratio) 29.86 kg/m2 Petey MALONE blood pressure, cuff size regular Ke rri Jaycob blood pressure, diastolic 86 mm[Hg] Ke rri Jaycob blood pressure, systolic 140 mm[Hg] Amira Devries oxygen saturation, oximetry 98 % Sachi Devries respiratory rate E&M 12 /min Sachi sher pulse rate 97 /min Sachi Naga lder weight E&M 185 [lb_av] Sachi Naga lder height E&M 66 [in_i] Sachi Mariachloé alejandraer ALLERGIES Allergy Name Onset Date Reaction Criticality Status LOVASTATIN Low Criticality active ATORVASTATIN Rash High Criticality active MORPHINE Low Criticality active TETRACYCLINE Low Criticality active SUNNY Low Criticality active PCN Low Criticality active HISTORY OF MEDICATION USE Medication Status Instructions Dates Provider Indications Com ments aspirin 81 mg tablet,delayed release (DR/EC) active Take 1 tablet by mouth once a day Luna Jogre rosuvastatin 20 mg tablet active Take 1 tablet by mouth once a day Luna Jorge clopidogrel 75 mg tablet completed Take 1 tablet by mouth once a day Luna Jorge Brilinta 90 mg tablet completed Take 1 tablet by mouth twice a day - Drew Ramirez RN losartan 25 mg tablet active Candelario Angelo MD clopidogrel 75 mg tablet completed take 1 tablet daily, patient should pay balderrama for 4 tablets to take as a loading dose and then take 1 tab once a day after - Candelario Alexanderalog KwikPen Insulin 100 unit/mL insulin pen active Sachi Devries Lanelous Solostar U-100 Insulin 100 unit/mL (3 mL) insulin pen active Sachi Devries albuterol sulfate 90 mcg/actuation HFA aerosol inhaler active Sachi Devries fluticasone propionate 50 mcg/actuation spray,suspensio n active Sachi Devries aspirin 81 mg tablet,chewable completed TAKE 1 TABLET BY MOUTH EVERY DAY - Luna Jorge atorvastatin 40 mg tablet completed Take 1 tablet by mouth every night - Drew Ramirez RN benzonatate 200 mg capsule active as needed Sachi Devries Brilinta 90 mg tablet completed TAKE 1 TABLET BY MOUTH TWICE A DAY - Candelario Angelo MD famotidine 20 mg tablet active TAKe one TABLET BY MOUTH ONCE DAILY Sachi Devries nicotine 21 mg/24 hr patch 24 hour active once a day Sachi Devries SOCIAL HISTORY Date Observation Value Provider smoking status Former smoker Candelario Angelo MD FUNCTIONAL STATUS Date Observation Value Provider HRA, CV Assess/Plan, Angina (inactive) Management Plan continue current therapy Candelario Angelo MD INSURANCE PROVIDERS Payer name Policy type / Coverage type [place] [employer] party ID JONA MEDICAID Medicaid [id number] ADVANCE DIRECTIVES Name Date DISCUSSED - NO DECISION MADE TREATMENT PLAN Date Name Performer Cardiology:4 cigs pe r day u sed to be 3 ppd encouraging but needs to quit completely Candelario Angelo MD Cardiology:She had a n IW GA in 06/16/23 and had a urgent PCI of the RCA. t hen stage intervention in lcx f ullly revascularized Candelarioamish Angelo MD Cardiology: B P today: 140/86 starting Losartan 25mg Candelarioamish Angelo MD Cardiology:LDL 114 A im for LDL below 55 H er updated medication list for this problem includes: Atorvastatin 40 Mg Tablet (Atorvastatin) ..... Take 1 tablet by mouth every night Candelarioamish Angelo MD Cardiology:She had a n IW GA in 06/16/23 and had a urgent PCI of the RCA. Candelario Angelo MD Cardiology:A1C aim f or below 6.5% H er updated medication list for this problem includes: Humalog Kwikpen Insulin 100 Unit/ml Insulin Pen (Insulin lispro) Lantus Solostar U-100 Insulin 100 Unit/ml (3 Ml) Insulin Pen (Insulin glargine) Aspirin 81 Mg Tablet,chewable (Aspirin) ..... Take 1 tablet by mouth every day Candelarioamish Angelo MD Cardiology:LDL 114 A im for LDL below 70 H er updated medication list for this problem includes: Atorvastatin 40 Mg Tablet (Atorvastatin) ..... Take 1 tablet by mouth every night Candelarioamish Angelo MD Cardiology: B P today: 140/86 On Losartan 25mg Candelarioamish Angelo MD Date Name CRP, high sensitivit y LIPID PANEL Lipoprotein (a) HISTORY OF PROCEDURES Procedure Date Procedure Name Provider Procedure Notes S tatus Complex e/m visit add on Petey MALONE completed EKG Petey MALONE completed
--- OUTSIDE RECORDS SUMMARY | 2024-07-09 17:42 | XMS_ITS | Clinical Summary ---
Author Organization [facility] Address [address] [place] [address] Care Team Providers Care Tie Worker Name Role Phone uJvenal Mckeon MD Unavailable [phone] Kendrick Diaz MD Primary Care Provider [phone] Allergies Active Allergy Reactions Criticality Noted Date [...] , with long-term current use of insulin ([facility]) Inject 32 Units under the skin daily e11.9 30 mL 4 4 Active TRUEplus Pen Needle 31 gauge x 5/16 needle USE TO INJECT FOUR TIMES DAILY 400 each 3 4 Active OneTouch Verio test strips stripIndicatio ns:Type 2 diabetes mellitus with diabetic polyneuropathy , with long-term current use of insulin ([facility]) USE 1 STRIP TO TEST BLOOD SUGAR THREE TIMES DAILY DIRECTED 300 strip 4 4 Active alcohol swabs (Alcohol Prep Pads) pads, medicatedIndic ations:Type 2 diabetes mellitus with diabetic polyneuropathy , with long-term current use of insulin ([facility]) APPLY TOPICALLY TO CLEAN SKIN BEFORE BLOOD SUGAR AND INSULIN INJECTION FIVE TIMES DAILY 500 each 3 4 Active OneTouch Verio Flex meter misc USE TO TEST BLOOD SUGAR 3 TIMES DAILY BEFORE MEALS 1 each 5 Active losartan (COZAAR) 50 mg tabletIndicati ons:Type 2 diabetes mellitus with hyperglycemia, with long-term current use of insulin ([facility]) Take 0.5 tablets (25 mg total) by mouth daily 5 Active rosuvastatin (CRESTOR) 20 mg tabletIndicati ons:Type 2 diabetes mellitus with hyperglycemia, with long-term current use of insulin ([facility]) rosuvastatin 20 mg tablet 4 Active aspirin [...] Diagnosed Date Coronary artery disease invo lving tazlina coronary artery of tazlina heart without angina pectoris 06/09/2024 Family history of premature coronary artery dise ase 06/09/2024 STEMI (ST elevation myocardial infarction) 06/15 COPD (chronic obstructive pulmonary disease) 08/2023 GERD (gastroesophageal reflux disease) Hypertension associated with type 2 diabetes emely [...] is <140/90. Message sent to Dr. PARRISH wheel polisher regarding hypertension Personally reviewed lipid panel. Not [...] resolved Assessment & Plan (01/07/2022 4:07 PM RUG SAMPLE BEVELER): This is a chronic condition which is [...] No history of macrovascular disease - CVA, SC. Assessment & Plan (06/18/2021 4:13 PM CDT): [...] No history of macrovascular disease - CVA, SC. Assessment & Plan (12/11/2020 3:58 PM CDT): [...] No history of macrovascular disease - CVA, SC. Assessment & Plan (11/22/2020 4:27 PM CDT): [...] No history of macrovascular disease - CVA, SC. Mixed diabetic hyperlipidemi a associated with type [...] prescribed. Assessment & Plan (01/07/2022 4:07 PM RUG SAMPLE BEVELER): This is a chronic condition which is [...] encounter 03/16/2017 11/22/2020 Intercostal muscle strain 03/16/2017 Encounters Date Type Department Care Team Description 06/15/2024 Telephone [facility] Diabetes Endocrine Care at [address] [place] [address] Sandra Swann NP 06/09/2024 9:30 AM CDT Office Visit [facility] Cardiology at [address] [place] [id number] Oj Hernández MD Hypertension associated with type 2 diabetes mellitus (HCC) (Primary Dx); Mixed diabetic hyperlipidemia associated with type 2 diabetes mellitus (HCC); Coronary artery disease involving tazlina coronary artery of tazlina heart without angina pectoris; Chronic obstructive pulmonary disease, unspecified COPD type (HCC); Tobacco abuse; Family history of premature coronary artery disease 04/08/2024 Results Follow-Up [facility] Diabetes Endocrine Care at [address] [place] [address] Sandra Swann, [place] Albumin Creatinine Ratio, Urine, Lipid panel, RetinaVue Scanner - OU - Both Eyes from Last 3 Months Immunizations Immunization Administration Dates Next Due Influenza, Quadrivalent, Split, Intramuscular ,12/22/2014 Influenza, Quadrivalent, Spl it, Preservative Free, Intramuscular 11/03/2017 Influenza, Unspecified 11/29/2021 Surgical History Surgery Date Site/Laterality Comments SECTION 02/10/2000 - 02/08/2001 X4 TUBAL LIGATION 02/10/2000 - 02/08/2001 DILATION AND CURETTAGE OF UTERUS 02/10/2012 - 02/08/[address] ENT PLACEMENT 06/16/2023 Medical History Medical History Date Comments Intercostal muscle strain 03/16/2017 Sprain of ribs, initial encounter 03/16/2017 Anemia DM2 (diabetes mellitus, type 2) (HCC) diagnosed age 17 HTN (hypertension) COPD (chronic obstructive pulmonary disease) ([facility] C) GERD (gastroesophageal reflux disease) Tobacco abuse STEMI (ST elevation myocardial infarction) ([facility]) Sleep apnea Motion sickness Depression Family History Medical History Relation Name Comments Heart attack Father Stroke Father Diabetes Mother Heart disease Mother Stroke Mother Coronary artery disease Sister Diabetes Sister Relation Name Status Comments Father Mother Sister Social History Tobacco Use Types Packs/Day Years Used Date Smoking Tobacco: Every Day Cigarettes 2 40 Smokeless Tobacco: Never Tobacco Cessation:Ready to Q uit: Not Asked; Counseling Given: Not Answered Comments:Started smoking at age 7, was up to 3ppd by high school [facility] Utilities Answer Date Recorded In the past 12 months has [employer], gas, oil, or water [employer] threatened to shut off services in your [...] often do you attend chur ch or methodist services? Never 06/16/2023 Do you belong to any clubs o r organizations such as faith groups, unions, fraternal or athletic groups, or [...] No 06/16/2023 Housing Stability Vital Sign Answer Rapahel e Recorded In the last 12 months, [...] place to sleep or slept in a intermediate (including now)? No 06/16/2023 Personal Safety Answer Date Recorded Have you ever been in or are you currently in a harmful physical or emotional relationship or is someone making you feel afraid or unsafe? Denies 06/19/2023 Comments No Sex and Gender Information Value Date Recorded Sex Assigned at Not on file Legal Sex Female 3:18 AM RUG SAMPLE BEVELER Gender Identity Female 12/18/2021 8:58 PM RUG SAMPLE BEVELER Sexual Orientation Straight 12/18/2021 8: 58 PM RUG SAMPLE BEVELER Obstetrics History Last Filed Vital Signs Vital Sign Reading Time Taken Comments Blood Pressure 156/92 06/09/2024 9:40 AM CDT Pulse 88 06/09/2024 9:40 AM CDT Temperature 36.3 C (97.3 F) 12/30/2023 1:48 PM RUG SAMPLE BEVELER Respiratory Rate 20 12/30/2023 1:48 PM RUG SAMPLE BEVELER Oxygen Saturation 98% 06/09/2024 9:40 AM CDT Inhaled Oxygen Concentration - - Weight 82.6 kg (182 lb) 06/09/2024 9:40 AM CDT Height 167.6 cm (5' 6) 06/09/2024 9:40 AM CDT Body Mass Index 29.38 06/09/2024 9:40 AM CDT Plan of Treatment Health Maintenance Due Date Last Done Comments Breast Cancer Screening-Mammogram 1968 Cervical Cancer Screening 1968 Colon Cancer Screening-Colonoscopy 1968 Depression Screening 1968 Hepatitis C Screening 1968 DTaP/Tdap/Td Vaccine (1 - Tdap) 02/28/1979 Hepatitis B Screening 02/28/1986 Regular Well Visit/Exam 18-64 02/28/1986 Pneumococcal vaccine <65 (1 of 2 - PCV) 02/28/1987 Lung Cancer Screening 02/28/2018 Zoster Vaccine (1 of 2) 02/28/2018 Covid-19 Vaccine (4 - 2023-2 5 season) 2023 03/10/2021, 06/22/2020, 05/06/2020 Foot Exam 07/01/2024 07/02/2023, 07/11, 05/07/2022, Additional history exists Hemoglobin A1C 10/05/2024 04/07/2024, 05/0 08/2023, 08/07/2022, Additional history exists Influenza Vaccine (Season Ended) 2024 11/29/2021, 11/26/2021, 11/03/2017, Additional history exists eGFR 12/29/2024 12/30/2023, 05/2 , 06/16/2023, Additional history exists Albumin Creatinine Ratio, Urine 04/07/2025 , 11/27/2021 Dilated Eye Exam 04/07/2025 04/07/2024 Lipid Panel 04/07/2025 04/07/2024, 05/0 08/2023, 11/27/2021, Additional history exists Medical Devices Implanted Type Area Mechanical Designer Device Identifier Shelf Expiration Date Model / Serial / Lot Analyte Logic Synergy Xd Monorail 3mm 16mm 144cm Delivery System 1 Access Port [id number] - [id number] Implanted:Qty: 1 on 06/16/2023 by Candelario Angelo MD at [facility] [employer] 12/30/2024 [id number] / / [id number] Cordis Mynxgrip 6-7fr Balloon Catheter Integrate Sealant Lock Latex Free [id number] - [id number] Implanted:Qty: 1 on 06/16/2023 by Candelario Angelo MD at [facility] 05/09/2025 [id number] / / [id number] Medtronic [facility] 3.0 X 15mm Michael Larrabee Rx Coronary Stent [id number] - [id number] Implanted:Qty: 1 on 06/19/2023 by Candelario Angelo MD at [facility] Medtronic [facility] Vas Surgery 02/24/2026 [id number] / / [id number] Procedures Procedure Name Priority Date/Time Associated Diagnosis Comments ECG 12-LEAD Routine 06/09/2024 3:24 PM CDT Hypertension associated with type 2 diabetes mellitus (HCC) LIPID PANEL Routine 04/07/2024 2:43 PM RUG SAMPLE BEVELER Type 2 diabetes mellitus with hyperglycemia, with long-term current use of insulin (HCC) ALBUMIN CREATININE RATIO, URINE Routine 04/07/2024 2:43 PM RUG SAMPLE BEVELER Type 2 diabetes mellitus with hyperglycemia, with long-term current use of insulin (HCC) POCT HEMOGLOBIN A1C Routine 04/07/2024 1 :51 PM RUG SAMPLE BEVELER Type 2 diabetes mellitus with hyperglycemia, with long-term current use of insulin (HCC) RETINAVUE SCANNER - OU - BOTH EYES Routine 04/07/2024 Type 2 diabetes mellitus with hyperglycemia, with long-term current use of insulin (HCC) EGFR Routine 12/30/2023 1:40 PM RUG SAMPLE BEVELER Iron deficiency anemia due to chronic blood loss from Last 3 Months or Most Recently Relevant to Health Maintenance Results * ECG 12 lead (06/09/2024 3:24 PM CDT) Oj Hernández MD ECG ORDERABLES Final Res ult * (ABNORMAL) Albumin Creatinine Ratio, Urine (04/07/2024 2:43 PM RUG SAMPLE BEVELER) Albumin Ur 96.9 mg/L Comment: Interpretive Data No reference range established. Current interpretive data was last revised 2018. Creatinine Ur 78.1 mg/dL [facility] Comment: Interpretive Data No reference range established. Current interpretive data was last revised 2018. Albumin Creatinine Ratio, Ur 124(H) 1 - 29 mg/g STEPHANIE Urine 04/07/2024 2:43 PM RUG SAMPLE BEVELER 04/07/2024 9:18 PM RUG SAMPLE BEVELER Sandra Swann NP LAB URINE ORDERABLES Final Resu lt [facility] [id number] Department [place] [address] * (ABNORMAL) Lipid panel (04/07/2024 2:43 PM RUG SAMPLE BEVELER) Cholesterol 131 30 - 199 mg/dL Comment: [...] mg/dL High: >160 mg/dL Calculated using the Marie LDL-C estimating equation. This equation was implemented on 2023. Prior to this date LDL-C was estimated using the Friedewald equation. Literature References: 1. Expert Panel on Integrated Guidelines for Cardiovascular Health and Risk Reduction in Children and Adolescents. Pediatrics 2011;128:S213 2. NCEP Expert Panel. Circulation 2004;110:227 3. Frank M et al. YURY Cardiol. 2019June 09;5(5):540-548. doi: 10.1001/jamacardio.2020.0013 Current Interpretive Data was [...] revised on 2017. Chol/HDL ratio 4 STEPHANIE Blood 04/07/2024 2:43 PM RUG SAMPLE BEVELER 04/07/2024 9:18 PM RUG SAMPLE BEVELER Narrative STEPHANIE - 04/07/2024 10:21 PM RUG SAMPLE BEVELER These lab test should be done fasting. This means do not eat or drink for at least 12 hours prior to getting your blood drawn. Sandra Swann NP LAB BLOOD ORDERABLES Final Resu STEPHANIE [address] Department [place] [address] * POCT hemoglobin A1c (04/07/2024 1:51 PM RUG SAMPLE BEVELER) Hemoglobin A1C, POC 7.5 4.0 - 5.6 % Blood 04/07/2024 1:51 PM RUG SAMPLE BEVELER Sandra Swann NP POINT OF CARE TEST ORDERABLES F inal Result * RetinaVue Scanner - OU - Both Eyes (04/07/2024) Anatomical Region Laterality Modality Head Fundus Photograp hy 04/07/2024 us Sandra Swann NP OPHTH PHOTOGRAPHY Final Result * eGFR (12/30/2023 1:40 PM RUG SAMPLE BEVELER) eGFR 62 >=60 mL/min/1. 73 m2 Comment: [...] was last reviewed 2020. Testing performed by: [facility], [address] [facility], [place], [address] Blood 12/30/2023 1:40 PM RUG SAMPLE BEVELER 12/30/2023 2:38 PM RUG SAMPLE BEVELER us Sepideh Dobbs NP LAB BLOOD ORDERABLES Final Result [facility] [address] [facility] Department [place] [address] from Last 3 Months or Most Recently Relevant to Health Maintenance Insurance [facility] Advance Directives For more information, please contact: [phone] * Full Code (Latest Code Status on File) Date Activated Date Inactivated Comments 06/16/2023 5:19 AM 06/17/2023 9:36 PM Care Teams Tie Worker Relationship Specialty Start Date End Date Kendrick Diaz MD [address] [place] [address] DR RYAN [address] [address] PCP - General Family Medicine 06/16/23 Juvenal Mckeon MD Medical Oncologist/Laborer [employer] Hematology and Oncology 07/01/22
--- OUTSIDE RECORDS SUMMARY | 2024-07-09 17:42 | XMS_ITS | CONTINUITY OF CARE DOCUMENT ---
Author Name susy jain Address Unknown Organization [facility] Address [address] [address] [address] [place] [address] Phone [phone] Care Team Providers Care Business Analytics Specialist Name Role Phone Hosea MALONE, [facility] Unavailable Petey MALONE, Candelario Unavailable [phone] PROBLEMS Condition Status Date Provider Notes Coronary Heart Disease active Petey Guo Diabetes, Type 2 active p Petey MALONE Hypertension active p Petey MALONE Hypothyroidism active p Petey MALONE C O P D active Petey MALONE Hypercholesterolemia active p Petey MALOEN Tobacco abuse active Candelario Petey MALONE ENCOUNTERS Date Type Provider Location Encounter Diag nosis - In-person encounter Office Visit [facility]ey MAL[facility] Coronary Heart DiseaseDiabetes, Type 2HypertensionHypothyroidismC O [...] by mouth once a day Luna Jorge rosuvastatin 20 mg tablet active Take 1 [...] Payer name Policy type / Coverage type [place] [employer] [employer] Medicaid [id number] ADVANCE DIRECTIVES Name Date DISCUSSED - NO DECISION MADE TREATMENT PLAN Date Name Performer Cardiology:4 cigs pe r day u sed to be 3 ppd encouraging but needs to quit completely Candelario Angelo MD Cardiology:She had a n IW AR in 06/16/23 and had a urgent PCI [...] Angelo MD Cardiology:She had a n IW AR in 06/16/23 and had a urgent PCI [...]
[2024-07-09 17:44] VITALS: BP 141/79; PULSE 92; RESP 20; TEMP 36.7; O2SAT 98
--- NOTE | 2024-07-09 18:15 | ED.URI ---
HPI - URI/Sore Throat General Chief Complaint: Upper Respiratory Infection Stated Complaint: COPD, cough, resp issues Time Seen by Provider: 07/09/24 18:16 Source: patient, RN notes reviewed and old records reviewed Mode of arrival: ambulatory Limitations: no limitations History of Present Illness HPI Narrative: 54 year old female presents to [facility] care with complaints of cough, shortness of breath, for the past 1.5 weeks. Patient reports that she has coughed so hard that she has vomited. Patient reports that she has taken Flonase, used her inhalers as ordered without much relief. Patient reports that she smoked 2 cigarettes in the past 5 days. Patient has diagnosis of COPD and is still using Tobacco. Patient reports that she is not sleeping well either. MD elicited complaint: cough and sore throat Pertinent past history: COPD, asthma and other (tobacco abuse) Onset (ago): week(s) (1.5 weeks) Severity: moderate Description of mucous: other (white) Able to tolerate fluids by mouth: Yes Treatments prior to arrival: other (respiratory treatments) Related Data Home Medications ?Medication ?Instructions ?Recorded ?Confirmed ?Last Taken ?Type albuterol sulfate 90 mcg/actuation 2 puff inhalation Q4-6H PRN 07/03/22 01/29/23 Unknown History aerosol inhaler Shortness Of Breath Or Wheezing insulin glargine 100 unit/mL (3 30 unit subcut QPM 07/03/22 01/29/23 Unknown History mL) subcutaneous pen (Lantus Solostar U-100 Insulin) insulin lispro 100 unit/mL 5 unit subcut TID 07/03/22 01/29/23 Unknown History subcutaneous pen ipratropium bromide 17 2 puff inhalation DAILY PRN 07/03/22 01/29/23 Unknown History mcg/actuation HFA aerosol inhaler Shortness Of Breath Or Wheezing (Atrovent HFA) medroxyprogesterone 150 mg/mL 150 mg IM [id number] 01/29/23 01/29/23 Unknown History intramuscular suspension aspirin 81 mg chewable tablet 07/09/24 Unknown History clopidogrel 75 mg tablet mg 07/09/24 Unknown History empagliflozin 10 mg tablet mg 07/09/24 Unknown History (Jardiance) famotidine 20 mg tablet mg 07/09/24 Unknown History rosuvastatin 20 mg tablet mg 07/09/24 Unknown History Allergies Allergy/AdvReac Type Severity Reaction Status Date / Time morphine Allergy Unknown Unknown Verified 07/09/24 17:51 Penicillins Allergy Unknown Unknown Verified 07/09/24 17:51 tetracycline Allergy Unknown Unknown Verified 07/09/24 17:51 Review of Systems Review of Systems: CONSTITUTIONAL: reports malaise,no chills, sweats, or fever. EYES: Denies visual changes, redness, or discharge. ENT: Reports rhinorrhea, congestion, sinus pain, otalgia and sore throat. CARDIOVASCULAR: Denies chest pain, palpitations, or edema. RESPIRATORY: Reports cough ing so hard she vomits?Reports dyspnea with minimal activity GASTROINTESTINAL: Denies abdominal pain, nausea, vomiting, diarrhea, vomits only with coughing fits SKIN: Denies rash or itching. MUSCULOSKELETAL: Denies myalgia. NEUROLOGIC: Denies headache. All systems reviewed & are unremarkable except as noted in HPI and below PMFSH Past Medical History Medical History (Updated 07/11/24 @ 15:13 by Ananya Wei NP) Pneumonia Hyperlipidemia Hypertension Myocardial infarction Anemia Diabetes COPD (chronic obstructive pulmonary disease) Surgical History Surgical History (Updated 07/11/24 @ 15:11 by Ananya Wei NP) H/O heart artery stent x2 Social History Social History (Updated 07/11/24 @ 15:12 by Ananya Wei NP) Smoking status: Current every day smoker Gender identity (if verbalized by the patient): Female Comments At time of signature, agree with nursing past medical, surgical, social and family history. There is no relevant family history pertinent to the presenting complaint Exam Narrative: GENERAL:chronic ill l-appearing, well-nourished, and in no acute distress. HEAD: Normocephalic EYES: PERRLA, conjunctivae clear ENT: Nares clear, turbinates edematous and erythematous, clear discharge. Mucous membranes moist. TM pearly angeles with dull light reflex bilaterally; no tragal tenderness. Oropharynx erythematous without lesions. Tonsils not enlarged and without exudate, no drooling, no hoarseness, no trismus, uvula midline.post nasal drainage NECK: Supple. No lymphadenopathy CHEST: decreased breath sounds with some wheezing upper lobes to auscultation, breath sounds equal.+ wheezing, no rhonchi, rales, or stridor. No acute respiratory distress, speaks in full sentences. frequent cough noted at times productive white mucous. HEART: Regular rate and rhythm. No murmur heard. SKIN: Warm, dry, no rash. NEURO: Alert and oriented x3. PSYCH: Normal mood and affect Course Course Emergency Course: Patient is aware of diagnosis, understands and agrees to treatment plan.? Anticipatory guidance given.? Patient agrees to follow-up as directed and is aware of reasons to seek care at the emergency department. Portions of this record may have been created with voice recognition software Level of Care: Express Care Visit Vital Signs Vital signs: Vital Signs Temperature 36.7 C 07/09/24 17:44 Pulse Rate 92 07/09/24 17:44 Respiratory Rate 20 07/09/24 17:44 Blood Pressure 141/79 H 07/09/24 17:44 Pulse Oximetry 98 07/09/24 17:44 Oxygen Delivery Room Air 07/09/24 17:44 Temperature 36.7 C 07/09/24 17:44 Pulse Rate 92 07/09/24 17:44 Respiratory Rate 20 07/09/24 17:44 Blood Pressure 141/79 H 07/09/24 17:44 Pulse Oximetry 98 07/09/24 17:44 Oxygen Delivery Room Air 07/09/24 17:44 Reviewed MDM - URI/Sore Throat MDM Narrative Medical decision making narrative: Differential diagnosis considered: [place] virus, strep pharyngitis, allergic rhinitis, upper respiratory tract infection, sinusitis, rhinosinusitis, nasopharyngitis. viral pharyngitis, otitis media, otitis externa, pneumonia, bronchitis, viral cough syndrome, viral syndrome, and influenza.? Exam findings show no acute concerns or changes; patient is non-toxic appearing and is in no distress.? Patient is appropriate for outpatient treatment and follow-up. Differential Diagnosis Differential diagnosis: Likely upper respiratory infection, viral infection, bronchitis and other (exacerbation of COPD) Medical Records Attestation: I reviewed the patient's medical records. Lab Data Attestation: I reviewed the patient's lab results. Critical Care Time Critical Care Time Critical Care Time: No Discharge Plan Discharge Clinical Impression: Acute exacerbation of chronic obstructive pulmonary disease Patient Disposition: Home Condition: Stable Instructions: Antibiotic Form, Prednisone (By mouth) Additional Instructions: Increase fluids especially juices and water Cqcy-syk-fuxetpt cough and cold medicine of your choice for your symptoms Zyrtec Claritin or Emilie daily Continue your inhaler/nebulizer as directed Steroids as directed--take with food heat to the face 20-30 minutes 4-6 times a day for pain Salt water gargles, throat lozenges or throat sprays as desired Antibiotic as directed--finished the medication If your symptoms persist, change or worsen significantly before you can contact your personal physician then please, without delay, go to the emergency department for further evaluation. Follow-up with PCP in 7-10 days or sooner if needed Follow up with PCP soon in regards to your blood pressure which is elevated above threshold for referral. Blood pressure above 120/80 may indicate pre-hypertension. 141/79 Monitor blood sugars closely while on steroids and adhere to dietary restrictions. STOP SMOKING Patient Language: Cypriot Prescriptions: New azithromycin 250 mg tablet See Rx Instructions .ROUTE .COMPLEX Qty: 6 0RF Rx Instructions: For 250 mg dose pack: take 500 mg today (day 1), then 250 mg for 4 days (days 2-5) prednisone 20 mg tablet 20 mg PO BID 5 Days Qty: 10 0RF No Action albuterol sulfate 90 mcg/actuation HFA aerosol inhaler 2 puff INHALATION Q4-6H PRN (Reason: Shortness Of Breath Or Wheezing) Atrovent HFA 17 mcg/actuation HFA aerosol inhaler 2 puff INHALATION DAILY PRN (Reason: Shortness Of Breath Or Wheezing) insulin lispro 100 unit/mL insulin pen 5 unit SUBCUT TID insulin glargine [Lantus Solostar U-100 Insulin] 100 unit/mL (3 mL) insulin pen 30 unit SUBCUT QPM clopidogrel 75 mg tablet famotidine 20 mg tablet aspirin 81 mg tablet,chewable rosuvastatin 20 mg tablet Jardiance 10 mg tablet medroxyprogesterone 150 mg/mL suspension 150 mg IM [id number] Follow-up/Referrals: Joe,Kendrick Hernandez MD [Primary Care Provider] - Time of Disposition: 18:34 Quality Vik Coma Scale Eyes: Open Verbal: Oriented and Alert Motor: Follows Commands Vik Coma Total Score: 15
== END 2024-07-09 18:41 | disposition home or self-care (01) ==
PROVIDERS: Emergency Provider Registered Nurse; PCP Family Medicine
DX: J44.1 Chronic obstructive pulmonary disease with (acute) exacerbation (principal); F17.200 Nicotine dependence, unspecified, uncomplicated; I10 Essential (primary) hypertension; E11.9 Type 2 diabetes mellitus without complications; Z79.4 Long term (current) use of insulin; E78.5 Hyperlipidemia, unspecified; I25.2 Old myocardial infarction; Z95.5 Presence of coronary angioplasty implant and graft
CPT/HCPCS: 99213; G0463